=== PATIENT | female | born 1960 | race Caucasian/White ===

== ENCOUNTER → 2017-03-29 | Outpatient (CLI) | payer OTHER ==
[~2017-03-29] MED LIST: ACCUNEB SO1.25 MG/1 INH; ADVAIR 250-501 EACH INH; ALBUTEROL2.5 MG/0.1 INH; ALBUTEROL2.5 MG/0.5 INH; ALBUTEROL2.5 MG/31 IH; ASPIRIN EC81 M1 PO; ASPIRIN325; ATIVAN0.5 M1 PO; ATROVENT INH; BREO ELLIPTA 21 EACH INH; CEFUROXIME500 MG PO; DOXYCYCLINE 10100 M2 PO; DOXYCYCLINE 10100 MG PO; DULERA 100 MCG/13 GM INH; DULERA 200 MCG/13 GM INH; LEVALBUTER1.25 MG/0. INH; LEVALBUTER1.25 MG/3; LEVAQUIN 500 M500 M2 PO; LEVAQUIN 500 M500 M4 PO; LIPITOR 20 MG T20 M1 PO; LISINOPRIL5 MG; LISINOPRIL5 MG PO; MEDROLDOSEPACK PO; MUCINEX TA600 MG/TA2 PO; NICOTINE TRANSD21 M1 TRANSDERM; NITROGLYCERIN0.4 MG; NITROQUICK0.4 MG SL; NOHOMEMEDICATIONS; PREDNISONE 10 M10 MG PO; PREDNISONE 20 M20 M1 PO; PREDNISONE 20 M20 MG PO; PREDNISONE 5 MG5 M1 PO; PREDNISONE 5 MG5 MG PO; PROAIR HFA8.5 GM INH; SPIRIVA INH; TESSALON PERLE100 MG PO; TYLENOL325 MG PO; VENTOLIN HFA 1818 GM INH; VITAMIN E400 UNIT PO; XANAX 0.25 MG0.25 MG PO; XANAX 0.5 MG0.5 M1 PO; XANAX 0.5 MG0.5 MG PO; ZPAK PO
== END ==
LOC: RAD 14:19
DX: R06.00 Dyspnea, unspecified (principal)

== ENCOUNTER 2017-05-05 01:54 | Inpatient (IN) | payer OTHER ==
[~2017-05-05] VITALS: Ht 154.9 cm; Wt 44.9 kg
--- NOTE | ~2017-05-05 | EKG ---
[address] [place] [address] ELECTROCARDIOGRAM REPORT Name: KEVINCULLENSHARMAINE GARNICA Room #: 430-P ADM IN ..#: [id number] Admission: 05/05/17 Attend Phys: Irving Palm MD Discharge: Date of : 60 Report #: [id number] THIS REPORT FOR: //name// [facility] ED Test Date: 2017-05-05 Test Time: 02:09:56 Pat Name: CULLEN BROWN Department: Room: 430 Gender: F Map Mounter: LULI : 1960 Requested By: Prasanna French Order Number: [id number] MD: Bay Cruz Measurements Intervals [place] Rate: 120 P: 89 OK: 148 QRS: 69 QRSD: 82 T: 72 QT: 306 QTc: 433 Interpretive Statements Sinus tachycardia Consider right atrial enlargement Nonspecific ST segment abnormality Abnormal R-wave progression, late transition Artifact in lead(s) I,V1,V4,V5,V6 Compared to ECG 12/14/2014 02:13:25 Ventricular premature complex(es) no longer present Electronically Signed On 05-05-2017 8:54:04 CLINICAL INFORMATICS STRATEGIST by Bay Cruz [email or web address] <ELECTRONICALLY SIGNED> By: Bay Cruz MD, [facility] 05/05/17 0854 8 8 Bay Cruz MD, [facility] /EPI
--- NOTE | ~2017-05-05 | HC ---
[facility] [place] [address] CONSULTATION Name: CULLEN BROWN Room #: 430-P ADM IN M.R.#: [id number] Admission: 05/05/17 Attend Phys: Irving Palm MD Discharge: Date of : 60 Report #: [id number] THIS REPORT FOR: //name// CC: Irving Hardin MD DATE OF SERVICE: 05/05/2017 PULMONARY CONSULTATION REFERRING PROVIDER: Irving Palm MD REASON FOR CONSULTATION: COPD exacerbation. CHIEF COMPLAINT: Shortness of breath. 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 X-ray at that time was clear and bronchodilators for the patient as well as Mucinex and prednisone taper. The patient initially improved, returned to work; however, got ill again and 2 days ago started having increasing shortness of breath and cough, difficulty clearing any sputum with minimal sputum, some chest tightness noted. No fevers. Chest x-ray on this admission was relatively clear other than her hyperinflation consistent with underlying emphysema. Currently, she is resting comfortably in bed and feels somewhat improved with recent treatments. ALLERGIES: None known. PAST MEDICAL HISTORY: 1. Severe COPD. 2. Underlying asthma. 3. Gastroesophageal reflux disease. FAMILY HISTORY: Includes mother at 72, coronary artery disease. Father of pneumonia at 71. Brother with underlying COPD and cardiac disease as well. SOCIAL HISTORY: Ex-smoker, quitting in 2016. Occasional alcohol consumption. [facility] [address] [place] [address] CONSULTATION Name: CULLEN BROWN Room #: [address] [place] [address]#: [id number] Admission: 05/05/17 Attend Phys: Irving Palm MD Discharge: Date of : 60 Report #: [id number] OUTPATIENT MEDICATIONS: 1. Breo 200/25 one inhalation daily. 2. Vitamin D. 3. Spiriva daily. 4. Xopenex p.r.n. REVIEW OF SYSTEMS: Twelve-point review of systems normal except for some ongoing weight loss, but diminished appetite and respiratory symptoms as described. PHYSICAL EXAMINATION: VITAL SIGNS: Afebrile, pulse 100-110, respiratory rate 18, blood pressure 128/85, oxygen saturation 98% on 2 liters nasal cannula. GENERAL: Thin, cachectic, middle-aged woman, in no significant distress. ENT: Clear oropharynx. No thrush. Edentulous. NECK: Supple, no lymphadenopathy. LUNGS: Diminished with some occasional expiratory wheezes. HEART: Regular, but tachycardic. No murmurs. ABDOMEN: Soft, nontender, no masses. EXTREMITIES: No edema. LABORATORY DATA: White blood cell count 15,000, hemoglobin 17, hematocrit 49, platelet count 365. Sodium 143, potassium 4.0, chloride 105, bicarbonate 28, BUN 11, creatinine 0.8, glucose 135. Chest x-ray as described in HPI. No cultures. IMPRESSION: 1. Chronic obstructive pulmonary disease with acute exacerbation. 2. Anxiety disorder. No complaints of recent anxiety. 3. Underlying cachexia, protein malnutrition suggested. SUGGESTIONS: 1. Continue with bronchodilators. 2. Steroid taper. 3. Continue with current antibiotics, Rocephin and azithromycin. 4. Nasal swab for respiratory viral panel. 5. Deep venous thrombosis prophylaxis. 6. Additional recommendations to follow. We will follow along with you. <ELECTRONICALLY SIGNED> By: Max Boggs MD 05/08/17 1535 1857 0257 Max Boggs MD /nt
[~2017-05-05 01:54] MED LIST changes: -BREO ELLIPTA 21 EACH INH; -CEFUROXIME500 MG PO; -LEVALBUTER1.25 MG/0. INH; -LEVALBUTER1.25 MG/3; -LEVAQUIN 500 M500 M4 PO; -PREDNISONE 5 MG5 M1 PO; -XANAX 0.25 MG0.25 MG PO
[2017-05-05 01:55] VITALS: BP 187/113
[2017-05-05 02:23] LABS: HEMATOCRIT 48.9 % (37.0-47.0); HEMOGLOBIN 16.6 gm/dL (12.0-15.0); MCH 33.6 pg (26.0-34.0); MCHC 33.9 g/dL (28.0-37.0); MCV 99.1 fL (80.0-100.0); RBC 4.93 mil/uL (4.20-5.00); RDW 12.5 % (10.5-14.5); WBC 14.8 thou/uL (4.0-11.0)
[2017-05-05 02:27] LABS: CALCIUM 9.2 mg/dL (8.5-10.1); CREATININE 0.8 mg/dL (0.6-1.0)
[2017-05-05] MEDS ORDERED: BREO ELLIPTA 21 EACH INH (02:30)
[2017-05-05] MEDS ORDERED: PREDNISONE 5 MG5 M1 PO (02:32)
[2017-05-05 03:34] VITALS: BP 131/85
[2017-05-05 04:38] VITALS: BP 145/84
[2017-05-05 07:21] VITALS: BP 116/80
[2017-05-05 15:43] VITALS: BP 128/85
[2017-05-05 19:22] VITALS: BP 147/87
[2017-05-06 03:38] VITALS: BP 141/89
[2017-05-06 06:29] LABS: ABSOLUTE NEUTROPHILS 13.9 thou/uL (1.4-8.2); HEMATOCRIT 39.9 % (37.0-47.0); LYMPHOCYTES 3.8 % (24.0-44.0); MCH 33.2 pg (26.0-34.0); MCHC 33.8 g/dL (28.0-37.0); MCV 98.3 fL (80.0-100.0); MONOCYTES 2.4 % (1.0-8.0); POLYS 93.8 % (36.0-66.0); RBC 4.06 mil/uL (4.20-5.00); RDW 12.3 % (10.5-14.5); WBC 14.8 thou/uL (4.0-11.0)
[2017-05-06 06:31] LABS: HEMOGLOBIN 13.5 gm/dL (12.0-15.0); PLATELET COUNT 271 thou/uL (150-400)
[2017-05-06 08:12] VITALS: BP 140/95
[2017-05-06 20:39] VITALS: BP 145/95
[2017-05-07 04:14] VITALS: BP 125/82
[2017-05-07 06:38] LABS: HEMATOCRIT 38.9 % (37.0-47.0); HEMOGLOBIN 13.3 gm/dL (12.0-15.0); MCH 33.5 pg (26.0-34.0); MCHC 34.3 g/dL (28.0-37.0); MCV 97.6 fL (80.0-100.0); RBC 3.98 mil/uL (4.20-5.00); RDW 12.3 % (10.5-14.5); WBC 13.4 thou/uL (4.0-11.0)
[2017-05-07 07:07] LABS: ALBUMIN 2.9 g/dL (3.4-5.0); CALCIUM 8.6 mg/dL (8.5-10.1); CREATININE 0.7 mg/dL (0.6-1.0); POTASSIUM 3.7 mmol/L (3.5-5.1); TOTAL BILIRUBIN 0.3 mg/dL (<0.1-1.0); TOTAL PROTEIN 5.4 g/dL (6.4-8.2)
[2017-05-07 08:00] VITALS: BP 126/77
[2017-05-07 16:06] LABS: GLYCOHEMOGLOBIN (HGB A1C) 5.3 % (4.8-5.6)
[2017-05-07 16:36] VITALS: BP 10/83
[2017-05-07 20:08] VITALS: BP 146/45; BP 146/95
[2017-05-08 04:24] VITALS: BP 127/81
[2017-05-08 05:37] LABS: HEMATOCRIT 39.2 % (37.0-47.0); HEMOGLOBIN 13.7 gm/dL (12.0-15.0); MCH 33.9 pg (26.0-34.0); MCHC 34.9 g/dL (28.0-37.0); MCV 97.3 fL (80.0-100.0); RBC 4.03 mil/uL (4.20-5.00); RDW 12.5 % (10.5-14.5); WBC 10.1 thou/uL (4.0-11.0)
[2017-05-08 05:48] LABS: ALBUMIN 2.9 g/dL (3.4-5.0); CREATININE 0.8 mg/dL (0.6-1.0); PHOSPHORUS 3.8 mg/dL (2.5-4.9); POTASSIUM 3.8 mmol/L (3.5-5.1)
[2017-05-08 09:18] VITALS: BP 142/92
[2017-05-08] MEDS ORDERED: LEVAQUIN 500 M500 M4 PO (13:40)
[2017-05-08] MEDS ORDERED: XANAX 0.25 MG0.25 MG PO (13:40)
[2017-05-08 15:00] VITALS: BP 144/87
[2017-05-08 20:35] VITALS: BP 158/102
[2017-05-09 03:52] VITALS: BP 135/84
[2017-05-09 07:39] VITALS: BP 146/91
[2017-05-09] MEDS ORDERED: LEVAQUIN 500 M500 M2 PO (10:09)
[2017-05-09] MEDS ORDERED: PREDNISONE 10 M10 MG PO (10:09)
[2017-05-09] MEDS ORDERED: SPIRIVA INH (10:09)
[2017-05-09 11:01] VITALS: BP 146/91
[2017-05-10 00:08] LABS: ADENOVIRUS Negative (Negative); INFLUENZA A Negative (Negative); INFLUENZA B Negative (Negative); METAPNEUMOVIRUS Negative (Negative); PARAINFLUENZA 1 Negative (Negative); PARAINFLUENZA 2 Negative (Negative); PARAINFLUENZA 3 Negative (Negative); RHINOVIRUS Negative (Negative); RSV A Negative (Negative); RSV B Negative (Negative)
== END 2017-05-09 11:45 | disposition home or self-care (01) | DRG 871 ==
LOC: ER 01:54 → 4E 03:39
PROVIDERS: Emergency Medicine; Hospitalist; Internal Medicine Pulmonary Disease
DX: A41.9 Sepsis, unspecified organism (principal); J96.20 Acute and chronic respiratory failure, unspecified whether with hypoxia or hypercapnia; E43 Unspecified severe protein-calorie malnutrition; J44.1 Chronic obstructive pulmonary disease with (acute) exacerbation; Z68.1 Body mass index [BMI] 19.9 or less, adult; F41.9 Anxiety disorder, unspecified; I10 Essential (primary) hypertension; K21.9 Gastro-esophageal reflux disease without esophagitis; F17.210 Nicotine dependence, cigarettes, uncomplicated; Z79.51 Long term (current) use of inhaled steroids; Z79.899 Other long term (current) drug therapy; Z71.6 Tobacco abuse counseling; Z82.49 Family history of ischemic heart disease and other diseases of the circulatory system; Z83.6 Family history of other diseases of the respiratory system
CPT/HCPCS: 10183

== ENCOUNTER 2017-05-30 03:01 | Inpatient (IN) | payer OTHER ==
[~2017-05-30] VITALS: Ht 160 cm; Wt 46.5 kg
[2017-05-30] VITALS (9 sets, daily range): BP systolic 109–169; BP diastolic 57–97
--- NOTE | ~2017-05-30 | EKG ---
[place] [address] [facility] [facility] [place] [address] ELECTROCARDIOGRAM REPORT Name: CULLEN BROWN NAHUN Room #: 170-4 ADM IN M.R.#: [id number] Admission: 05/30/17 Attend Phys: Irving Palm MD Discharge: Date of : 60 Report #: [id number] THIS REPORT FOR: //name// [facility] ED Test Date: 2017-05-30 Test Time: 03:40:38 Pat Name: CULLEN BROWN Department: Room: 170 4 Gender: F Gaming Cashier: soraya : 1960 Requested By: Prasanna French Order Number: [id number] MD: Bay Cruz Measurements Intervals [place] Rate: 133 P: 87 UT: 134 QRS: 75 QRSD: 88 T: 71 QT: 315 QTc: 469 Interpretive Statements Sinus tachycardia Ventricular bigeminy Consider right atrial enlargement Abnormal R-wave progression, late transition Artifact in lead(s) I,aVR,aVF,V1,V3,V4,V5,V6 Compared to ECG 05/05/2017 02:09:56 Ventricular premature complex(es) now present Electronically Signed On 05-30-2017 7:55:52 BACK TENDER PAPER MACHINE by Bay Cruz [email or web address] <ELECTRONICALLY SIGNED> By: Bay Cruz MD, FACC 05/30/17 0755 0340 0340 Bay Cruz MD, [facility] /EPI
--- NOTE | ~2017-05-30 | HC ---
[facility] [place] [address] CONSULTATION Name: CULLEN BROWN Room #: 218-P [facility] IN M.R.#: [id number] Admission: 05/30/17 Attend Phys: Irving Palm MD Discharge: 05/31/17 Date of : 60 Report #: [id number] THIS REPORT FOR: //name// CC: Irving Garridoie Wilfred DATE OF SERVICE: 05/30/2017 REFERRAL PHYSICIAN: Dr. Palm. REASON FOR REFERRAL: Dyspnea. HISTORY OF PRESENT ILLNESS: The patient is a 57-year-old white female with severe COPD, presents with progressive dyspnea. A pulmonary consultation was requested. The patient is followed longitudinally by Dr. Boggs. She has known severe COPD. She is not oxygen dependent. She is not steroid dependent. She unfortunately continues to smoke. She has been doing fairly well until this past month where she has had trouble with recurrent dyspnea. She was just hospitalized on 05/05/2017 with exacerbation of COPD. She has been doing fairly well until for the past several days. She has noticed gradual increase in dyspnea. She denies any febrile illness or sore throat. The patient denies any nausea, vomiting, diarrhea, productive cough, chest pain or hemoptysis. Again, she continues to smoke. PAST MEDICAL HISTORY: Notable for COPD, severe impairment with asthma overlap; gastroesophageal reflux disease; tobacco abuse. PAST SURGICAL HISTORY: Unremarkable. ALLERGIES: None to medications. HOME MEDICATIONS: Xanax, Spiriva, recent course of pulsed prednisone therapy, Levaquin, guaifenesin, Breo Ellipta 200 mcg 1 puff once a day. FAMILY HISTORY: Noncontributory. SOCIAL HISTORY: Again, she continues to smoke less than a pack a day. She denies any alcohol abuse. REVIEW OF SYSTEMS: As mentioned above. Otherwise, 10-point system review negative. [facility] [address] [place] [address] CONSULTATION Name: CULLEN BROWN Room #: 218-P [facility]#: [id number] Admission: 05/30/17 Attend Phys: Irving Palm MD Discharge: 05/31/17 Date of : 60 Report #: [id number] PHYSICAL EXAMINATION: GENERAL: She is awake, alert, in no apparent distress. VITAL SIGNS: Temperature is 97.6 degrees Fahrenheit, pulse is 100, respiratory rate is 20, blood pressure 125/93 mmHg, saturation 96%. HEENT: Normocephalic, atraumatic. NECK: Supple, without lymphadenopathy or thyromegaly. CHEST: Breath sounds are decreased bilaterally with mild expiratory wheezes. No rales. CARDIOVASCULAR: Normal S1, S2. There are no murmurs or gallop. There is no JVD. There is no carotid bruit. Pulses 2+/4+ bilaterally. ABDOMEN: Soft, nontender. No organomegaly or masses felt. GENITOURINARY: Deferred. RECTAL: Deferred. EXTREMITIES: There is no edema or cyanosis. Moderate clubbing is also noted in both hands. LABORATORY DATA: Portable chest x-ray shows clear lung manzo. A prior CT chest angiogram shows mild diffuse bilateral bullous disease, predominantly in the upper lobes. EKG shows poor R-wave progression. Otherwise, no acute ischemic changes. Electrolytes are normal. Liver function enzymes are normal. WBC 12,700, hemoglobin is 17.3, platelets are normal. Arterial blood gas revealed pH 7.35, pCO2 of 41, pO2 84 on 2 liters of O2. IMPRESSION: 1. Acute hypoxic respiratory failure in this 57 year white female due to exacerbation of chronic obstructive pulmonary disease. Cannot rule out early lower respiratory tract infections. 2. Tobacco abuse. 3. Polycythemia. She also has component of mild clubbing in both hands. Suspect chronic hypoxia. 4. Malnutrition. The patient has been noted to be cachectic in the past. RECOMMENDATION AND DISCUSSION: According to the patient, she has had clubbing for a number of years. Her weight has been relatively stable for the last several years. Nonetheless, she is known to have severe pulmonary disease. We will continue corticosteroids, bronchodilators and broad spectrum antibiotics. DVT and GI prophylaxis will be recommended. Strongly recommend smoke cessation. Thank you for the consultation. <ELECTRONICALLY SIGNED> By: Ren Burton MD 05/31/17 1742 1444 1986 Ren Burton MD /nt
--- NOTE | ~2017-05-30 | EKG ---
[place] [address] [facility] [place] [address] ELECTROCARDIOGRAM REPORT Name: CULLEN BROWN NAHUN Room #: 170-4 ADM IN .R.#: [id number] Admission: 05/30/17 Attend Phys: Irving Palm MD Discharge: Date of : 60 Report #: [id number] THIS REPORT FOR: //name// [facility] ED Test Date: 2017-05-30 Test Time: 03:20:02 Pat Name: CULLEN BROWN Department: Room: 170 Gender: F Commission Clerk: soraya : 1960 Requested By: Prasanna French Order Number: [id number] MD: Bay Cruz Measurements Intervals [place] Rate: 120 P: 93 MA: 143 QRS: 123 QRSD: 78 T: 77 QT: 307 QTc: 434 Interpretive Statements Sinus tachycardia right atrial enlargement Borderline low voltage, extremity leads Abnormal R-wave progression, late transition Compared to ECG 05/05/2017 02:09:56 No significant change was found Electronically Signed On 05-30-2017 7:55:09 BREAST TRIMMER by Bay rCuz [email or web address] <ELECTRONICALLY SIGNED> By: Bay Cruz MD, [facility] 05/30/17 [facility]5 0320 0320 Bay Cruz MD, [facility] /EPI
[~2017-05-30 03:01] MED LIST changes: +BREO ELLIPTA 21 EACH INH; +LEVAQUIN 500 M500 M4 PO; +PREDNISONE 5 MG5 M1 PO; +XANAX 0.25 MG0.25 MG PO
[2017-05-30 03:13] LABS: ABSOLUTE NEUTROPHILS 7.8 thou/uL (1.4-8.2); BASOPHILS 0.5 % (0.0-2.0); EOSINOPHILS 4.9 % (0.0-3.0); HEMOGLOBIN 17.3 gm/dL (12.0-15.0); LYMPHOCYTES 26.6 % (24.0-44.0); MCH 34.1 pg (26.0-34.0); MCHC 34.6 g/dL (28.0-37.0); MCV 98.6 fL (80.0-100.0); MONOCYTES 6.9 % (1.0-8.0); PLATELET COUNT 337 thou/uL (150-400); POLYS 61.1 % (36.0-66.0); RBC 5.07 mil/uL (4.20-5.00); RDW 13.1 % (10.5-14.5); WBC 12.7 thou/uL (4.0-11.0)
[2017-05-30 03:27] LABS: ANION GAP 9 mmol/L (7-16); BUN 15 mg/dL (7-18); CALCIUM 9.7 mg/dL (8.5-10.1); CHLORIDE 104 mmol/L (98-107); CO2 32 mmol/L (21-32); CREATININE 0.8 mg/dL (0.6-1.0); GLUCOSE 96 mg/dL (74-106); POTASSIUM 4.2 mmol/L (3.5-5.1); SODIUM 145 mmol/L (136-145)
[2017-05-30 03:36] LABS: SGOT 17 U/L (15-37); SGPT 25 U/L (30-65); TOTAL BILIRUBIN 0.4 mg/dL (<0.1-1.0); TOTAL PROTEIN 7.6 g/dL (6.4-8.2); TROPONIN-I < 0.04 ng/mL (<0.06)
[2017-05-30 03:44] LABS: HCO3 22.4 mmol/L (22.0-26.0); PCO2 41.5 mmHg (35.0-45.0); PO2 84.3 mmHg (80.0-100.0); pH 7.351 (7.360-7.450); sO2 95.9 % (92.0-98.0)
[2017-05-30 10:15] LABS: TSH 5.326 uIU/mL (0.358-3.740)
[2017-05-30] MEDS ORDERED: LEVALBUTER1.25 MG/3 (16:14)
[2017-05-31 03:21] LABS: HEMATOCRIT 39.6 % (37.0-47.0); MCH 33.4 pg (26.0-34.0); MCHC 34.3 g/dL (28.0-37.0); MCV 97.5 fL (80.0-100.0); RBC 4.06 mil/uL (4.20-5.00); RDW 13.1 % (10.5-14.5); WBC 12.2 thou/uL (4.0-11.0)
[2017-05-31 03:25] LABS: HEMOGLOBIN 13.6 gm/dL (12.0-15.0)
[2017-05-31 04:07] LABS: CALCIUM 9.1 mg/dL (8.5-10.1); CREATININE 0.9 mg/dL (0.6-1.0); POTASSIUM 4.4 mmol/L (3.5-5.1)
[2017-05-31 04:40] VITALS: BP 128/83
[2017-05-31 07:50] VITALS: BP 118/83
[2017-05-31] MEDS ORDERED: LEVALBUTER1.25 MG/0. INH (11:50)
[2017-05-31] MEDS ORDERED: PREDNISONE 10 M10 MG PO (11:50)
[2017-05-31] MEDS ORDERED: CEFUROXIME500 MG PO (11:53)
[2017-05-31 12:26] VITALS: BP 136/92
[2017-05-31 13:59] VITALS: BP 136/92
== END 2017-05-31 15:20 | disposition home or self-care (01) | DRG 189 ==
LOC: ER 03:01 → 2N 04:03 → EROBS 04:03 → 2N 14:18 → ENTRNSPT 05-31 14:58 → EDTRNSPTSTS 05-31 15:02 → 2N 05-31 15:20
PROVIDERS: Emergency Medicine; Nurse Practitioner; Nurse Practitioner Family
DX: J96.01 Acute respiratory failure with hypoxia (principal); J44.1 Chronic obstructive pulmonary disease with (acute) exacerbation; E46 Unspecified protein-calorie malnutrition; Z68.1 Body mass index [BMI] 19.9 or less, adult; F17.210 Nicotine dependence, cigarettes, uncomplicated; K21.9 Gastro-esophageal reflux disease without esophagitis; D75.1 Secondary polycythemia; F41.9 Anxiety disorder, unspecified; Z83.6 Family history of other diseases of the respiratory system; Z79.899 Other long term (current) drug therapy
CPT/HCPCS: 10081

== ENCOUNTER 2017-06-08 22:34 | Inpatient (IN) | payer OTHER ==
[~2017-06-08] VITALS: Ht 152.4 cm; Wt 44.8 kg
--- NOTE | ~2017-06-08 | EKG ---
[place] [address] [facility] [place] [address] ELECTROCARDIOGRAM REPORT Name: CULLEN BROWN Room #: 352-P ADM IN M.R.#: [id number] Admission: 06/08/17 Attend Phys: Susanna Chandler Discharge: Date of : 60 Report #: [id number] THIS REPORT FOR: //name// [facility] ED Test Date: 2017-06-08 Test Time: 23:43:53 Pat Name: CULLEN BROWN Department: Room: [facility] Gender: F Baseball Pitcher: MZOODarren : 1960 Requested By: Zack Spaulding Order Number: [id number] MD: Bay Cruz Measurements Intervals [place] Rate: 121 P: 89 IA: 138 QRS: 86 QRSD: 93 T: 70 QT: 310 QTc: 440 Interpretive Statements Sinus tachycardia Multiple ventricular premature complexes Consider biatrial enlargement Anteroseptal infarct, age indeterminate Compared to ECG 05/30/2017 03:40:38 No significant change was found Electronically Signed On 06-11-2017 13:30:18 CDT by Bay Cruz [email or web address] <ELECTRONICALLY SIGNED> By: Bay Cruz MD, FAC 06/11/17 1330 2343 2343 Bay Cruz MD, [facility] /EPI
--- NOTE | ~2017-06-08 | HC ---
[facility] [place] [address] CONSULTATION Name: CULLEN BROWN Room #: 352-P [facility] IN M.R.#: [id number] Admission: 06/08/17 Attend Phys: Susanna Chandler Discharge: 06/12/17 Date of : 60 Report #: [id number] THIS REPORT FOR: //name// CC: Susanna Hardni DATE OF SERVICE: 06/09/2017 REFERRING PROVIDER: Susanna Chandler MD REASON FOR CONSULTATION: Shortness of breath. HISTORY OF PRESENT ILLNESS: Our group was asked to see the patient in consultation while hospitalized at [facility], well known to me from office visits and recent hospital stays. She is a 57-year-old woman with a past history of persistent asthma as well as severe COPD, emphysema predominant, who had had a prior history of elevated IgE in eosinophil counts, continues to smoke several cigarettes per day. Unfortunately, presented to the Emergency Department again after just being in the Emergency Department about 8 days ago for similar complaints of increasing shortness of breath. The patient has been on a steroid taper and then as she tapers on prednisone has increasing symptoms. No fevers, chills or sweats. No significant sputum production at this time. Denies much cough, has been using her aerosol treatments about every 4 hours. Also noted inability to adequately inhale Breo inhaler during this time frame, recently quit working due to possible work place exposures, particularly to possible hydrocarbons. In addition, has been noted to be painting inside the home. The patient had been having symptoms prior to that event. Most recent CT 1 month ago showed emphysema, but no other significant findings. ALLERGIES: None known. PAST MEDICAL HISTORY: 1. Severe COPD, emphysema predominant. 2. Asthma. 3. Prior history of elevated eosinophil count and IgE. 4. Gastroesophageal reflux disease. FAMILY HISTORY: Mother at 72 due to coronary artery disease. Father of pneumonia at 71. Brother also with COPD and cardiac disease. SOCIAL HISTORY: The patient continues to smoke several cigarettes daily. Occasional alcohol consumption. OUTPATIENT MEDICATIONS: Include Spiriva, Breo, Xopenex nebulized treatments and [facility] [address] [place] [address] CONSULTATION Name: CULLEN BROWN NAHUN Room #: 352-[facility] IN [facility].#: [id number] Admission: 06/08/17 Attend Phys: Susanna Chandler Discharge: 06/12/17 Date of : 60 Report #: [id number] vitamin D. REVIEW OF SYSTEMS: A 12-point review of systems otherwise negative other than some ongoing weight loss. PHYSICAL EXAMINATION: VITAL SIGNS: Afebrile, pulse 90, respiratory rate 20, blood pressure 128/86, currently saturating 100% on 3 liters nasal cannula, was on BiPAP overnight due to respiratory distress. GENERAL: Thin, middle-aged woman, does not appear in distress. ENT: Clear oropharynx. No thrush. Mallampati 1 airway. NECK: Supple, no lymphadenopathy. LUNGS: Diminished with prolonged expiratory phase, occasional wheeze. CARDIOVASCULAR: Heart regular. No murmurs noted. ABDOMEN: Soft, nontender, no masses. EXTREMITIES: Revealed clubbing, no cyanosis or edema. LABORATORY DATA: Chest x-ray reveals hyperinflation, but otherwise clear lung manzo. Chemistry profile within normal limits except for mildly elevated glucose 135. White blood cell count 13,000, hemoglobin 14, hematocrit 40, platelet count 285, eosinophil count pending. Arterial blood gas on BiPAP 50% revealed pH 7.35, pCO2 of 46, pO2 of 100, bicarbonate 25. IMPRESSION: 1. Obstructive lung disease consistent with chronic obstructive pulmonary disease with significant asthmatic component with difficulty controlling without systemic steroids. The patient continues to have flareups when tapered from steroids. This is very similar occurrence that happened with her about 2 years ago and had required 5 mg daily of prednisone until she tapered off several months ago. At that time, an elevated eosinophil IgE count were noted with no clear cut etiology, may be prudent to revisit. SUGGEST: 1. Steroids with taper. 2. Bronchodilators. 3. Eosinophil count and IgE level. 4. Check echocardiogram to evaluate for pulmonary hypertension. 5. Smoking cessation. 6. Mobilize as able. 7. Consider discontinuation of antibiotics if no purulent sputum. 8. We will continue to follow. [address] [address] CONSULTATION Name: CULLEN BROWN Room #: 352-P [facility] IN M.R.#: [id number] Admission: 06/08/17 Attend Phys: Susanna Chandler Discharge: 06/12/17 Date of : 60 Report #: [id number] Thank you for requesting our suggestions. <ELECTRONICALLY SIGNED> By: Max Boggs MD 06/15/17 1122 0957 1740 Max Boggs MD /nt
--- NOTE | ~2017-06-08 | 2DMMODE ---
[facility] [address] [place] [address] 2 D/M-MODE ECHOCARDIOGRAM Name: CULLEN BROWN Room #: 352-P ADM IN M.R.#: [id number] Admission: 06/08/17 Attend Phys: Susanna Farnsworth Discharge: Date of : 60 Date of Service: 06/09/17 1019 Report #: [id number] THIS REPORT FOR: //name// APPROVED REPORT Study performed: 06/09/2017 08:41:51 EXAM: Comprehensive 2D, Doppler, and color-flow Echocardiogram Patient Location: Echo lab Room #: [facility] Status: routine BSA: 1.38 HR: 96 bpm BP: 128/86 mmHg Rhythm: NSR with PVC's Other Information Study Quality: Fair/low parasternal window. Technically limited study due to COPD and thin body habitus. Not all measurements taken. Indications Short of breath. Hx: COPD, emphysema, continued tobacco use 2D Dimensions RVDd: 36.31 mm LVEF(%): 66.46 (>50%) IVSd: 7.43 (7-11mm) LVOT Diam: 18.86 (18-24mm) LVDd: 39.06 mm PWd: 7.58 (7-11mm) LVDs: 24.94 (25-40mm) Aortic Root: 31.02 mm Olivares's LVEF: 66.46 % Volumes Left Atrial Volume (Systole) Single Plane 4CH: 17.27 mL Aortic Valve AoV Peak Fermin.: 1.26 m/s AO Peak Gr.: 6.36 mmHg LVOT Max P.64 mmHg LVOT Max V: 0.95 m/s MACARIO Vmax: 2.11 cm2 Mitral Valve E/A Ratio: 0.8 [facility] [place] [address] 2 D/M-MODE ECHOCARDIOGRAM Name: KEVINCULLEN NAHUN Room #: [address] [place] [address] IN ..#: [id number] Admission: 06/08/17 Attend Phys: Susanna Farnsworth Discharge: Date of : 60 Date of Service: 06/09/17 1019 Report #: [id number] MV Decel. Time: 269.01 ms MV E Max Fermin.: 0.78 m/s MV A Fermin.: 1.02 m/s MV PHT: 78.01 ms IVRT: 69.20 ms Pulmonary Valve PV Peak Fermin.: 1.02 m/s PV Peak Gr.: 4.19 mmHg Tricuspid Valve TR Peak Fermin.: 2.32 m/s RAP Estimate: 5.00 mmHg TR Peak Gr.: 21.53 mmHg Left Ventricle The left ventricle is normal size. There is normal LV segmental wall motion. There is normal left ventricular wall thickness. Left ventricular systolic function is normal. LVEF is 55-60%. Mild diastolic dysfunction is present (impaired relaxation pattern). Right Ventricle The right ventricle is normal size. The right ventricular systolic function is normal. Atria The left atrium size is normal. The right atrium size is normal. Aortic Valve Aortic valve leaflets are mildly thickened. No aortic regurgitation is present. There is no aortic valvular stenosis. Mitral Valve The mitral valve is normal in structure. Mild mitral regurgitation. Tricuspid Valve The tricuspid valve is normal in structure. Trace tricuspid regurgitation. Estimated PAP is 25-30mmHg. Pulmonic Valve The pulmonary valve is normal in structure. Trace pulmonic regurgitation. Great Vessels The aortic root is normal in size. Ascending aorta is not well [facility] [address] [place] [address] 2 D/M-MODE ECHOCARDIOGRAM Name: CULLEN BROWN NAHUN Room #: 352-P [facility] IN M.R.#: [id number] Admission: 06/08/17 Attend Phys: Susanna Farnsworth Discharge: Date of : 60 Date of Service: 06/09/17 1019 Report #: [id number] visualized. IVC is normal in size and collapses >50% with inspiration. Pericardium There is no pericardial effusion. <Conclusion> The left ventricle is normal size. LVEF is 55-60%. The right ventricle is normal size. The right ventricular systolic function is normal. The right atrium size is normal. Aortic valve leaflets are mildly thickened. There is no aortic valvular stenosis. The mitral valve is normal in structure. Mild mitral regurgitation. The tricuspid valve is normal in structure. Trace tricuspid regurgitation. Estimated PAP is 25-30mmHg. The pulmonary valve is normal in structure. Trace pulmonic regurgitation. There is no pericardial effusion. Ascending aorta is not well visualized. <ELECTRONICALLY SIGNED> By: Jamarcus Taylor MD 06/09/17 1019 1019 1019 Jamarcus Taylor MD /INF
[~2017-06-08 22:34] MED LIST changes: +CEFUROXIME500 MG PO; +LEVALBUTER1.25 MG/0. INH; +LEVALBUTER1.25 MG/3
[2017-06-08 22:35] VITALS: BP 153/96
[2017-06-08 22:51] LABS: HEMOGLOBIN 16.7 gm/dL (12.0-15.0); MCH 33.7 pg (26.0-34.0); MCHC 34.1 g/dL (28.0-37.0); MCV 98.8 fL (80.0-100.0); RBC 4.96 mil/uL (4.20-5.00); RDW 13.4 % (10.5-14.5); WBC 12.2 thou/uL (4.0-11.0)
[2017-06-08 22:58] LABS: ANION GAP 9 mmol/L (7-16); BUN 12 mg/dL (7-18); CALCIUM 9.2 mg/dL (8.5-10.1); CHLORIDE 104 mmol/L (98-107); CO2 30 mmol/L (21-32); CREATININE 0.7 mg/dL (0.6-1.0); GLUCOSE 111 mg/dL (74-106); SODIUM 143 mmol/L (136-145)
[2017-06-08 23:08] LABS: TROPONIN-I < 0.04 ng/mL (<0.06)
[2017-06-08 23:35] LABS: BE(vivo) -1.2 mmol/L (-2 to +3); HCO3 24.9 mmol/L (22.0-26.0); PCO2 46.4 mmHg (35.0-45.0); PO2 100.3 mmHg (80.0-100.0); pH 7.348 (7.360-7.450); sO2 97.3 % (92.0-98.0)
[2017-06-09] VITALS (7 sets, daily range): BP systolic 128–168; BP diastolic 74–106
[2017-06-09 05:37] LABS: HEMATOCRIT 39.6 % (37.0-47.0); MCH 34.2 pg (26.0-34.0); MCHC 34.5 g/dL (28.0-37.0); MCV 99.4 fL (80.0-100.0); RBC 3.98 mil/uL (4.20-5.00); RDW 13.1 % (10.5-14.5); WBC 12.9 thou/uL (4.0-11.0)
[2017-06-09 05:45] LABS: CALCIUM 8.5 mg/dL (8.5-10.1); CREATININE 0.8 mg/dL (0.6-1.0); POTASSIUM 4.6 mmol/L (3.5-5.1)
[2017-06-09 05:55] LABS: HEMOGLOBIN 13.6 gm/dL (12.0-15.0)
[2017-06-10 03:16] VITALS: BP 131/79
[2017-06-10 07:17] VITALS: BP 130/88
[2017-06-10 12:28] VITALS: BP 131/87
[2017-06-10 16:41] VITALS: BP 123/81
[2017-06-10 19:38] VITALS: BP 136/72
[2017-06-11 03:53] VITALS: BP 135/82
[2017-06-11 07:36] VITALS: BP 138/82
[2017-06-11 12:14] VITALS: BP 133/82
[2017-06-11 15:14] VITALS: BP 139/79
[2017-06-11 19:40] VITALS: BP 135/86
[2017-06-12 03:20] VITALS: BP 117/90
[2017-06-12 07:24] VITALS: BP 121/86
[2017-06-12] MEDS ORDERED: PREDNISONE 10 M10 MG PO (09:36)
[2017-06-12] MEDS ORDERED: LEVAQUIN 500 M500 M2 PO (09:36)
[2017-06-12 12:14] VITALS: BP 115/85
[2017-06-12 13:18] VITALS: BP 115/85
[2017-06-13 00:10] LABS: ADENOVIRUS Negative (Negative); INFLUENZA A Negative (Negative); INFLUENZA B Negative (Negative); METAPNEUMOVIRUS Negative (Negative); PARAINFLUENZA 1 Negative (Negative); PARAINFLUENZA 2 Negative (Negative); PARAINFLUENZA 3 Negative (Negative); RHINOVIRUS Negative (Negative); RSV A Negative (Negative); RSV B Negative (Negative)
== END 2017-06-12 14:44 | disposition home or self-care (01) | DRG 871 ==
LOC: ER 22:34 → 3W 23:45 → EROBS 23:45 → 3W 06-09 00:58
PROVIDERS: Emergency Medicine; Internal Medicine Pulmonary Disease; Nurse Practitioner Family
PROC: 5A09357 Assistance with Respiratory Ventilation, Less than 24 Consecutive Hours, Continuous Positive Airway Pressure (ICD-10-PCS; principal; 2017-06-08)
PROC: B24BZZ4 Ultrasonography of Heart with Aorta, Transesophageal (ICD-10-PCS; 2017-06-09)
DX: A41.9 Sepsis, unspecified organism (principal); J96.21 Acute and chronic respiratory failure with hypoxia; E43 Unspecified severe protein-calorie malnutrition; J44.1 Chronic obstructive pulmonary disease with (acute) exacerbation; Z68.1 Body mass index [BMI] 19.9 or less, adult; J45.901 Unspecified asthma with (acute) exacerbation; F41.9 Anxiety disorder, unspecified; I08.3 Combined rheumatic disorders of mitral, aortic and tricuspid valves; K21.9 Gastro-esophageal reflux disease without esophagitis; F17.210 Nicotine dependence, cigarettes, uncomplicated; Z79.899 Other long term (current) drug therapy; Z71.6 Tobacco abuse counseling; Z82.49 Family history of ischemic heart disease and other diseases of the circulatory system; Z82.5 Family history of asthma and other chronic lower respiratory diseases
CPT/HCPCS: 10879

== ENCOUNTER 2017-06-27 09:08 | Emergency (ER) | payer OTHER ==
[~2017-06-27] VITALS: Ht 160 cm; Wt 52.2 kg
--- NOTE | ~2017-06-27 | EKG ---
[place] [address] [place] [address] ELECTROCARDIOGRAM REPORT Name: CULLEN BROWN NAHUN Room #: [facility]#: [id number] Admission: 06/27/17 Attend Phys: Discharge: Date of : 60 Report #: [id number] THIS REPORT FOR: //name// [facility] ED Test Date: 2017-06-27 Test Time: 10:06:58 Pat Name: CULLEN BROWN Department: Room: Gender: F Manager Benefit: BASILIA : 1960 Requested By: Michael Larsen Order Number: [id number] MD: Bay Curz Measurements Intervals [place] Rate: 109 P: 90 ID: 134 QRS: 93 QRSD: 83 T: 71 QT: 332 QTc: 448 Interpretive Statements Sinus tachycardia Frequent premature ventricular complexes Right atrial abnormality Poor R wave progression Compared to ECG 06/08/2017 23:43:53 No significant change was found Electronically Signed On 06-27-2017 12:29:57 CDT by Bay Cruz [email or web address] <ELECTRONICALLY SIGNED> By: Bay Cruz MD, [facility] 06/27/17 1229 05 Bay Cruz MD, FAC /EPI
[2017-06-27] MEDS ORDERED: XANAX 0.5 MG0.5 M1 PO (14:25)
[2017-06-27] MEDS ORDERED: PREDNISONE 20 M20 MG PO (14:25)
== END 2017-06-27 14:34 | disposition home or self-care (01) ==
LOC: ER 09:08
DX: J44.1 Chronic obstructive pulmonary disease with (acute) exacerbation (principal); R00.8 Other abnormalities of heart beat; F11.20 Opioid dependence, uncomplicated; F41.9 Anxiety disorder, unspecified

== ENCOUNTER 2018-07-14 06:01 | Inpatient (IN) | payer OTHER ==
[~2018-07-14] VITALS: Ht 152.4 cm; Wt 43.1 kg
[2018-07-14] VITALS (11 sets, daily range): BP systolic 121–165; BP diastolic 81–115
--- NOTE | ~2018-07-14 | H ---
[facility] [place] [address] HISTORY AND PHYSICAL Name: CULLEN BROWN Room #: 238-P ADM IN M.R.#: [id number] Admission: 07/14/18 ������������������ Attend Phys: Carmel Hernandez MD Discharge: ������������������ Date of : 60 Report #: [id number] THIS REPORT FOR: //name// CC: Carmel Garridoie Wilfred REASON FOR PRESENTATION: Shortness of breath. HISTORY OF PRESENT ILLNESS: A very well-known patient to us from previous admissions. She is a 58-year-old with past medical history of COPD, who presented with increasing shortness of breath after she had been working in her yard. This has gotten progressively worse over the last 24 hours and was associated with cough. No fever or chills. She has COPD with severe emphysematous and hyperexpanded lungs on the previous x-rays. She had been evaluated by her senior wind turbine technician, Dr. Boggs, in the past. She lost to followup after he left the practice. She is also known to have history of persistent asthma with elevated IgE. She was last seen by him back in 05/2017. She required 8 liters of oxygen when she got transferred to the Emergency Room. No productive sputum. No hemoptysis. PAST MEDICAL HISTORY: 1. COPD. 2. Asthma. 3. Elevated IgE. 4. Gastroesophageal reflux. FAMILY HISTORY: Mom had coronary artery disease. Father of pneumonia. SOCIAL HISTORY: No drug or alcohol abuse. She lives with her . She continues to smoke. MEDICATIONS: 1. Alprazolam. 2. Prednisone. 3. Spiriva. 4. Levalbuterol. 5. Breo. REVIEW OF SYSTEMS: GENERAL: No fever or chills. CARDIOVASCULAR: No chest pain or palpitations. PULMONARY: As per the history of present illness. GASTROINTESTINAL: No nausea or vomiting. GENITOURINARY: No frequency or urgency. MUSCULOSKELETAL: No back pain. No morning stiffness. NEUROLOGIC: No headache, no dizziness. [facility] [address] [place] [address] HISTORY AND PHYSICAL Name: CULLEN BROWN NAHUN Room #: [address] [place] [address] IN ..#: [id number] Admission: 07/14/18 ������������������ Attend Phys: Carmel Hernandez MD Discharge: ������������������ Date of : 60 Report #: [id number] PHYSICAL EXAMINATION: VITAL SIGNS: Pulse is 110. She is afebrile. Respiratory rate was 22 on arrival. Blood pressure is 145/98. HEAD AND NECK: She is using her neck accessory muscles. CHEST: Very limited air entry with bilateral wheezes. CARDIOVASCULAR: No rub. ABDOMEN: Soft, nontender. LOWER EXTREMITIES: No edema. LABORATORY DATA: Laboratory values reviewed. White blood cell count is 12.8. Blood gas with a pH of 7.3. Chemistry is within normal limits. Chest x-ray with no acute abnormality. ASSESSMENT, IMPRESSION AND PLAN: 1. Chronic obstructive pulmonary disease exacerbation. 2. Leukocytosis. 3. Asthma. 4. Remote history of eosinophilia and elevated IgE. 5. Admission. 6. IV steroids. 7. Cultures. 8. Appropriate antibiotics initiation. 9. CPAP utilization. 10. Inhalers. 11. Deep venous thrombosis and gastrointestinal prophylaxis. ��������������������������������������������� ���������������������������������������� By: ��������������������������������������������� 0839 0923 Carmel Hernandez MD /nt
[2018-07-14 06:16] LABS: ABSOLUTE NEUTROPHILS 5.6 thou/uL (1.4-8.2); BASOPHILS 0.8 % (0.0-2.0); EOSINOPHILS 6.8 % (0.0-3.0); HEMATOCRIT 50.4 % (37.0-47.0); LYMPHOCYTES 40.4 % (24.0-44.0); MCH 33.1 pg (26.0-34.0); MCHC 33.8 g/dL (28.0-37.0); MONOCYTES 8.2 % (1.0-8.0); PLATELET COUNT 307 thou/uL (150-400); POLYS 43.8 % (36.0-66.0); RBC 5.14 mil/uL (4.20-5.00); RDW 12.7 % (10.5-14.5); WBC 12.8 thou/uL (4.0-11.0)
[2018-07-14 06:21] LABS: PCO2 49.4 mmHg (35.0-45.0); PO2 295.8 mmHg (80.0-100.0); sO2 99.6 % (92.0-98.0)
[2018-07-14 06:22] LABS: pH 7.304 (7.360-7.450)
[2018-07-14 06:30] LABS: ANION GAP 13 mmol/L (7-16); BUN 18 mg/dL (7-18); CHLORIDE 103 mmol/L (98-107); CO2 29 mmol/L (21-32); CREATININE 0.9 mg/dL (0.6-1.0); GLUCOSE 106 mg/dL (74-106); SODIUM 145 mmol/L (136-145)
[2018-07-14 06:38] LABS: TROPONIN-I <0.06 ng/mL (<0.06)
--- NOTE | 2018-07-14 09:08 | EKG ---
[address] [place] [address] ELECTROCARDIOGRAM REPORT Name: CULLEN BROWN Room #: 238- ADM IN M.R.#: [id number] ������������������ Admission: 07/14/18 ������������������ Attend Phys: Carmel Hernandez MD Discharge: ������������������ Date of : 60 Report #: [id number] ����������������������������������������������������������������� [id number] THIS REPORT FOR: //name// [facility] ED Test Date: 2018-07-14 Test Time: 07:45:02 Pat Name: CULLEN BROWN Department: Room: 238 Gender: F Aws Developer: raghav : 1960 Requested By: Mynor Verdugo Order Number: [id number] MD: Immanuel Healy Measurements Intervals [place] Rate: 106 P: 91 CO: 139 QRS: 84 QRSD: 92 T: 60 QT: 336 QTc: 447 Interpretive Statements Sinus tachycardia Frequent PVCs Right atrial enlargement Low voltage, extremity leads Abnormal R-wave progression, late transition Compared to ECG 06/27/2017 10:06:58 Low QRS voltage now present Poor R-wave progression no longer present Electronically Signed On 07-14-2018 9:08:31 CDT by Immanuel Healy [email or web address] ��������������������������������������������� <ELECTRONICALLY SIGNED> ���������������������������������������� By: Immanuel Healy MD ��������������������������������������������� 07/14/18 0908 0745 Immanuel Healy MD /EPI
--- NOTE | 2018-07-14 10:24 | NUR ---
PATIENT ADMITTED FROM THE ED DEPARTMENT AT 0900, ALERT AND ORIENTED X4. SINUS RHYTHM TO SINUS TACHYCARDIA ON WET CHAR CONVEYOR TENDER. ON 3L NASAL CANNULA, SHORTNESS OF BREATH WITH EXERTION. UP INDEPENDENTLY. NO SKIN ISSUES. PATIENT BEING TRANSFERRED TO [facility], REPORT CALLED TO ONCOMING NURSE. NO SIGNS OF ACUTE DISTRESS NOTED AT THIS TIME, PATIENT TRANSFERRED.
--- NOTE | 2018-07-14 16:42 | NUR ---
PATIENT ADMITTED TO UNIT AT ABOUT 12PM. SHE IS ALERT ORIENTED X4. DENIES PAIN. RESPIRAIONNS ARE NON LABORED WHEN SHE IS RESTING. NO NEW COMPLAINTS. WILL CONT WITH PLAN OF CARE.
[2018-07-15 00:10] VITALS: BP 136/92
[2018-07-15 03:45] VITALS: BP 126/77
[2018-07-15 04:04] LABS: HEMOGLOBIN 15.1 gm/dL (12.0-15.0); MCH 33.3 pg (26.0-34.0); MCHC 34.4 g/dL (28.0-37.0); MCV 97.1 fL (80.0-100.0); RBC 4.53 mil/uL (4.20-5.00); RDW 12.6 % (10.5-14.5); WBC 9.1 thou/uL (4.0-11.0)
[2018-07-15 04:21] LABS: CALCIUM 9.5 mg/dL (8.5-10.1); CREATININE 0.7 mg/dL (0.6-1.0); TOTAL BILIRUBIN 0.4 mg/dL (<0.1-1.0); TOTAL PROTEIN 6.8 g/dL (6.4-8.2)
--- NOTE | 2018-07-15 05:23 | NUR ---
SLEPT MOST OF SHIFT. DENIES COMPLAINTS OF PAIN OR SHORTNESS OF AIR. UP AD ABBY TO BATHROOM WITH STEADY GAIT. HAS NOT HAD TO USE PRN O2 TONIGHT. WORKING ON GOALS AND PLAN OF CARE FOR NOC. PROGRESSING SLOWLY TOWARDS DISCHARGE GOALS. CONTINUE TO ASSES.
[2018-07-15 07:11] VITALS: BP 145/80
[2018-07-15 10:08] VITALS: BP 145/80
--- NOTE | 2018-07-15 10:30 | EKG ---
[place] [address] [employer] [facility] [place] [address] ELECTROCARDIOGRAM REPORT Name: CULLEN BROWN Room #: 358-P ADM IN M.R.#: [id number] ������������������ Admission: 07/14/18 ������������������ Attend Phys: Carmel Hernandez MD Discharge: ������������������ Date of : 60 Report #: [id number] ����������������������������������������������������������������� [id number] THIS REPORT FOR: //name// [facility] ED Test Date: 2018-07-14 Test Time: 06:08:16 Pat Name: CULLEN BROWN Department: Room: [facility] Gender: F Die Holder: ignacio : 1960 Requested By: Mynor Verdugo Order Number: [id number] MD: Immanuel Healy Measurements Intervals [place] Rate: 123 P: 85 AL: 137 QRS: 242 QRSD: 105 T: 64 QT: 321 QTc: 460 Interpretive Statements Sinus tachycardia Frequent PVCs right atrial enlargement Low voltage, extremity leads Consider left ventricular hypertrophy Poor R-wave progression Compared to ECG 06/27/2017 10:06:58 Left ventricular hypertrophy now present Electronically Signed On 07-15-2018 10:29:47 CDT by Immanuel Healy [email or web address] ��������������������������������������������� <ELECTRONICALLY SIGNED> ���������������������������������������� By: Immanuel Healy MD ��������������������������������������������� 07/15/18 1029 0608 0608 Immanuel Healy MD /EPI
--- NOTE | 2018-07-15 11:14 | NUR ---
PATIENT WILL BE DISCHARGE HOME AT THIS TIME. SHE IS PLEASANT. [facility] CARE. DOES NOT SEEM TO BE IN PAIN. RESPIRATIONS ARE NON LABORED. PRECRIPTIONS GIVEN TO HER. WILL CONT WITH PLAN OF CARE.
== END 2018-07-15 11:29 | disposition home or self-care (01) | DRG 191 ==
LOC: ER 06:01 → EROBS 07:15 → ICU 08:54 → 3W 08:55
PROVIDERS: Emergency Medicine; ADMIT Hospitalist
DX: J44.1 Chronic obstructive pulmonary disease with (acute) exacerbation (principal); E87.2 Acidosis; J96.10 Chronic respiratory failure, unspecified whether with hypoxia or hypercapnia; F41.9 Anxiety disorder, unspecified; D72.1 Eosinophilia; K21.9 Gastro-esophageal reflux disease without esophagitis; F17.210 Nicotine dependence, cigarettes, uncomplicated; Z79.899 Other long term (current) drug therapy; Z82.49 Family history of ischemic heart disease and other diseases of the circulatory system; Z83.6 Family history of other diseases of the respiratory system
CPT/HCPCS: 10879

== ENCOUNTER 2018-09-20 08:46 | Inpatient (IN) | payer OTHER ==
[2018-09-20] VITALS (7 sets, daily range): BP systolic 119–146; BP diastolic 65–100
[~2018-09-20] VITALS: Ht 154.9 cm; Wt 45.4 kg
[2018-09-20 09:08] LABS: ABSOLUTE NEUTROPHILS 5.5 thou/uL (1.4-8.2); BASOPHILS 0.7 % (0.0-2.0); EOSINOPHILS 3.4 % (0.0-3.0); HEMATOCRIT 43.8 % (37.0-47.0); HEMOGLOBIN 14.9 gm/dL (12.0-15.0); LYMPHOCYTES 25.6 % (24.0-44.0); MCH 34.1 pg (26.0-34.0); MCV 100.2 fL (80.0-100.0); MONOCYTES 6.7 % (1.0-8.0); PLATELET COUNT 294 thou/uL (150-400); POLYS 63.6 % (36.0-66.0); RBC 4.37 mil/uL (4.20-5.00); RDW 13.2 % (10.5-14.5); WBC 8.7 thou/uL (4.0-11.0)
[2018-09-20 09:11] LABS: CALCIUM 8.9 mg/dL (8.5-10.1); CREATININE 0.8 mg/dL (0.6-1.0); POTASSIUM 4.2 mmol/L (3.5-5.1)
[2018-09-20 09:22] LABS: ALBUMIN 3.7 g/dL (3.4-5.0); TOTAL BILIRUBIN 0.6 mg/dL (<0.1-1.0); TOTAL PROTEIN 6.7 g/dL (6.4-8.2); TROPONIN-I 0.11 ng/mL (<0.06)
[2018-09-20 09:25] LABS: BE(vivo) -5.8 mmol/L (-2 to +3); HCO3 19.5 mmol/L (22.0-26.0); PCO2 37.9 mmHg (35.0-45.0); PO2 196.2 mmHg (80.0-100.0); sO2 99.3 % (92.0-98.0)
[2018-09-20 09:26] LABS: pH 7.329 (7.360-7.450)
--- NOTE | 2018-09-20 15:44 | NUR ---
PATIENT ARRIVED FROM ED VIA STRECHER, ALERT AND ORIENTED X4. SOB ON O2 2L NC. BREATHING TX Q4 GIVEN PER RT, PATIENT REPORTED SOME RELIEVE. ST ON THE MONITOR ,VSS AND AFEBRILE. ADMISSION COMPLETED, AND WILL CONTINUE WITH POC.
--- NOTE | 2018-09-21 02:55 | NUR ---
ASSUMED PT CARE AT 1900. PT A/OX4, VITAL SIGNS STABLE, ASSESSMENT CHARTED.NO COMPLAINTS OF PAIN. OCCASIONAL SOB, 02 AT BED SIDE. PT OCCASIONALLY TAKES OFF O2. HEAD OF BED ELEVATED. PT RESTED WELL THROUGH THE NIGHT. PROGRESSING TOWARD PLAN OF CARE. WILL CONTINUE TO MONITOR.
[2018-09-21 04:36] VITALS: BP 106/66
[2018-09-21 05:20] LABS: ABSOLUTE NEUTROPHILS 8.6 thou/uL (1.4-8.2); BASOPHILS 0.1 % (0.0-2.0); HEMATOCRIT 38.4 % (37.0-47.0); HEMOGLOBIN 13.3 gm/dL (12.0-15.0); LYMPHOCYTES 5.5 % (24.0-44.0); MCH 34.2 pg (26.0-34.0); MCHC 34.5 g/dL (28.0-37.0); MCV 99.1 fL (80.0-100.0); MONOCYTES 3.1 % (1.0-8.0); PLATELET COUNT 240 thou/uL (150-400); POLYS 91.3 % (36.0-66.0); RBC 3.88 mil/uL (4.20-5.00); RDW 13.4 % (10.5-14.5); WBC 9.4 thou/uL (4.0-11.0)
[2018-09-21 05:39] LABS: CALCIUM 8.8 mg/dL (8.5-10.1); CREATININE 0.7 mg/dL (0.6-1.0); MAGNESIUM 1.7 mg/dL (1.8-2.4); POTASSIUM 3.7 mmol/L (3.5-5.1)
--- NOTE | 2018-09-21 07:44 | EKG ---
[place] [address] [address] [facility] [place] [address] ELECTROCARDIOGRAM REPORT Name: KEVINCULLENSHARMAINE GARNICA Room #: 205-P ADM IN .R.#: [id number] ������������������ Admission: 09/20/18 ������������������ Attend Phys: Samuel Laguna MD Discharge: ������������������ Date of : 60 Report #: [id number] ����������������������������������������������������������������� [id number] THIS REPORT FOR: //name// [facility] ED Test Date: 2018-09-20 Test Time: 08:58:48 Pat Name: CULLEN BROWN Department: Room: [facility] Gender: F Heel Cutter: BLANCO : 1960 Requested By: Narayan Feng Order Number: [id number] MD: Bay Cruz Measurements Intervals [place] Rate: 115 P: 94 MO: 159 QRS: 98 QRSD: 90 T: 66 QT: 329 QTc: 455 Interpretive Statements Sinus tachycardia Multiform ventricular premature complexes Biatrial enlargement Poor R wave progression nonspecific ST and T wave abnormality Compared to ECG 07/14/2018 07:45:02 no significant change was found Electronically Signed On 09-21-2018 7:44:06 CDT by Bay Cruz [email or web address] ��������������������������������������������� <ELECTRONICALLY SIGNED> ���������������������������������������� By: Bay Cruz MD, FACC ��������������������������������������������� 09/21/18 0744 0858 0858 Bay Cruz MD, [facility] /EPI
[2018-09-21 08:24] VITALS: BP 119/66
[2018-09-21 10:10] LABS: GLYCOHEMOGLOBIN (HGB A1C) 5.2 % (4.8-5.6)
[2018-09-21] MEDS ORDERED: DOXYCYCLINE 10100 MG PO (11:50)
[2018-09-21] MEDS ORDERED: PREDNISONE 20 M20 MG PO (11:50)
[2018-09-21] MEDS ORDERED: ACETAMINOPHEN325 M1 PO (11:50)
[2018-09-21 12:14] VITALS: BP 119/66
--- NOTE | 2018-09-21 12:16 | NUR ---
Pt dcing home today. Case discussed with the care team. No cm interventions indicated. Pt has home o2 in place for prn use. She is indep with gait and adl's. Her AD/DPOA document is on the chart. Insurance being verified. Pt's pcp is Dr. Varsha Hardin.
[2018-09-21 12:22] VITALS: BP 119/66
--- NOTE | 2018-09-21 12:51 | NUR ---
PT CARE ASSUMED APPROX 0700. PT ALERT AND ORIENTED X4. VSS. DENIES PAIN AND SOA. PT TO DISCHARGE AT THIS TIME. POST HOSPITAL CARE EDUCATION PROVIDED BY DR PATIÑO. PT DENIES QUESTIONS OR CONCERNS REGARDING MEDS, F/U APPTS, ACTIVITY LEVEL, DIET, OR POST HOSPITAL CARE. IV OUT, TELE BOX OFF. PT'S TO TRANSPORT HOME. PT WILL BE ESCORTED OUT BY HOSPITAL STAFF TIMELY.
== END 2018-09-21 13:43 | disposition home or self-care (01) | DRG 189 ==
LOC: ER 08:46 → 2N 09:45 → EROBS 09:45 → 2N 11:02 → ENTRNSPT 09-21 13:34 → 2N 09-21 13:43
PROVIDERS: Emergency Medicine; Nurse Practitioner; ADMIT Internal Medicine
DX: J96.21 Acute and chronic respiratory failure with hypoxia (principal); J43.9 Emphysema, unspecified; Z66 Do not resuscitate; R73.9 Hyperglycemia, unspecified; F41.1 Generalized anxiety disorder; R74.8 Abnormal levels of other serum enzymes; J96.22 Acute and chronic respiratory failure with hypercapnia; R76.8 Other specified abnormal immunological findings in serum; F17.210 Nicotine dependence, cigarettes, uncomplicated; Z79.51 Long term (current) use of inhaled steroids; Z79.899 Other long term (current) drug therapy; Z71.6 Tobacco abuse counseling
CPT/HCPCS: 10081

== ENCOUNTER 2018-10-01 02:04 | Inpatient (IN) | payer OTHER ==
[~2018-10-01] VITALS: Ht 152.4 cm; Wt 46.0 kg
[2018-10-01] VITALS (27 sets, daily range): BP systolic 114–215; BP diastolic 66–125
[~2018-10-01 02:04] MED LIST changes: +ACETAMINOPHEN325 M1 PO
[2018-10-01 02:23] LABS: ABSOLUTE NEUTROPHILS 10.4 thou/uL (1.4-8.2); BASOPHILS 0.7 % (0.0-2.0); EOSINOPHILS 4.8 % (0.0-3.0); HEMATOCRIT 46.6 % (37.0-47.0); HEMOGLOBIN 15.9 gm/dL (12.0-15.0); LYMPHOCYTES 29.9 % (24.0-44.0); MCH 34.3 pg (26.0-34.0); MCHC 34.1 g/dL (28.0-37.0); MCV 100.6 fL (80.0-100.0); MONOCYTES 7.8 % (1.0-8.0); PLATELET COUNT 389 thou/uL (150-400); POLYS 56.8 % (36.0-66.0); RBC 4.63 mil/uL (4.20-5.00); RDW 12.7 % (10.5-14.5); WBC 18.4 thou/uL (4.0-11.0)
[2018-10-01 02:31] LABS: ANION GAP 7 mmol/L (7-16); BUN 18 mg/dL (7-18); CALCIUM 8.4 mg/dL (8.5-10.1); CHLORIDE 105 mmol/L (98-107); CO2 32 mmol/L (21-32); CREATININE 0.7 mg/dL (0.6-1.0); GLUCOSE 154 mg/dL (74-106); POTASSIUM 4.5 mmol/L (3.5-5.1); SODIUM 144 mmol/L (136-145)
[2018-10-01 02:36] LABS: BE(vivo) -0.8 mmol/L (-2 to +3); HCO3 31.3 mmol/L (22.0-26.0); PO2 322.9 mmHg (80.0-100.0); sO2 99.6 % (92.0-98.0)
[2018-10-01 02:38] LABS: PCO2 89.3 mmHg (35.0-45.0); pH 7.162 (7.360-7.450)
[2018-10-01 02:41] LABS: ALBUMIN 3.8 g/dL (3.4-5.0); SGOT 55 U/L (15-37); SGPT 76 U/L (30-65); TOTAL BILIRUBIN 0.4 mg/dL (<0.1-1.0); TOTAL PROTEIN 6.9 g/dL (6.4-8.2); TROPONIN-I <0.06 ng/mL (<0.06)
[2018-10-01 04:34] LABS: BE(vivo) -3.1 mmol/L (-2 to +3); HCO3 27.6 mmol/L (22.0-26.0); PO2 111.9 mmHg (80.0-100.0); sO2 96.7 % (92.0-98.0)
--- NOTE | 2018-10-01 05:20 | NUR ---
PT ARRIVED TO UNIT @ 0325 FROM ED ON BIPAP. SPOUSE AT BEDSIDE. DR. FERRO CONSULTED AND AWARE OF PT CONDITION/ABG RESULTS. TACHY IN THE 120-130S ON THE CAFETERIA MONITOR. CONTINUE TO MONITOR
[2018-10-01 05:29] LABS: BE(vivo) -2.5 mmol/L (-2 to +3); HCO3 26.9 mmol/L (22.0-26.0); sO2 96.4 % (92.0-98.0)
[2018-10-01 05:31] LABS: PCO2 67.2 mmHg (35.0-45.0); pH 7.221 (7.360-7.450)
[2018-10-01 05:48] LABS: PCO2 76.7 mmHg (35.0-45.0); pH 7.174 (7.360-7.450)
--- NOTE | 2018-10-01 08:17 | EKG ---
[place] [address] [facility] [place] [address] ELECTROCARDIOGRAM REPORT Name: KEVINCULLEN NAHUN Room #: 247-[facility] IN ..#: [id number] ������������������ Admission: 10/01/18 ������������������ Attend Phys: Irving Palm MD Discharge: ������������������ Date of : 60 Report #: [id number] ����������������������������������������������������������������� [id number] THIS REPORT FOR: //name// [facility] ED Test Date: 2018-10-01 Test Time: 02:16:33 Pat Name: CULLEN BROWN Department: Room: [facility] Gender: F Ncr Operator: vernell workman : 1960 Requested By: Narayan Feng Order Number: [id number] MD: Bay Cruz Measurements Intervals [place] Rate: 120 P: 88 [place]: 152 QRS: 94 QRSD: 106 T: 86 QT: 315 QTc: 445 Interpretive Statements Sinus tachycardia Ventricular bigeminy Right atrial abnormality Compared to ECG 09/20/2018 08:58:48 ST (T wave) deviation no longer present Electronically Signed On 10-01-2018 8:17:09 CDT by Bay Cruz [email or web address] ��������������������������������������������� <ELECTRONICALLY SIGNED> ���������������������������������������� By: Bay Cruz MD, [facility] ��������������������������������������������� 10/01/18 0817 5 Bay Cruz MD, [facility] /EPI
[2018-10-01 11:21] LABS: BE(vivo) -1.2 mmol/L (-2 to +3); HCO3 24.6 mmol/L (22.0-26.0); PCO2 45.3 mmHg (35.0-45.0); PO2 141.9 mmHg (80.0-100.0); pH 7.353 (7.360-7.450); sO2 98.7 % (92.0-98.0)
--- NOTE | 2018-10-01 16:45 | NUR ---
shift summary;Pt was alert, oriented x 4. Pt was on Bipap but was off around 1130. NC on.ABG gas was reordered @noon and showed improvement. Pt's breathing was non-labored. HR was between SR, S. Tachy and Bigeminy. Pt didn't have appetite except sherbert. Pt was up w/ standby assist for using toilet. Pt requested to be off from NC. O2sat was 91 to 94%
[2018-10-02] VITALS (21 sets, daily range): BP systolic 101–156; BP diastolic 50–92
[2018-10-02 05:11] LABS: HEMATOCRIT 38.6 % (37.0-47.0); MCH 34.2 pg (26.0-34.0); MCHC 34.2 g/dL (28.0-37.0); MCV 100.2 fL (80.0-100.0); RBC 3.85 mil/uL (4.20-5.00); RDW 12.6 % (10.5-14.5); WBC 13.4 thou/uL (4.0-11.0)
[2018-10-02 05:14] LABS: HEMOGLOBIN 13.2 gm/dL (12.0-15.0)
[2018-10-02 05:22] LABS: CALCIUM 8.5 mg/dL (8.5-10.1); CREATININE 0.7 mg/dL (0.6-1.0)
--- NOTE | 2018-10-02 06:08 | NUR ---
ASSUMED CARE OF PT. AT 1900. PT. IS ALERT AND OREINTED X4. DENIES PAIN. NC ON AT NIGHT WHILE ASLEEP FOR LOW OR, NO BIPAP NEEDED. PT. SHOWS PVCS AND OCCASIONAL BIGEMINY ON MONITOR, SAME DURING THE DAY. PT. IS UP WITH STAND BY ASSIST TO TOILET, ADEQUATE URINARY OUTPUT. PLAN OF CARE IS TO CONTINUE TO MONITOR OXYGENATION, POSSIBLE TRANSFER TODAY? ASSESSMENTS AND VITAL SIGNS CHARTED. WILL CONTINUE TO MONITOR.
--- NOTE | 2018-10-02 10:54 | NUR ---
INITIAL ASSESSMENT: SW reviewed chart and spoke with nursing. Pt was admitted from home due to exacerbation of COPD. Pt is on IV steroids at this time. Pt may transfer out of ICU later today. SW met with pt and spouse at bedside. Introduced role of SW. Pt is alert/orientated x 4. Pt sitting up in chair during time of visit. Pt reports she lives at home with her spouse in a one-level home. No steps to enter or inside the home. Prior to admission, pt was independent with ADLS. No use of DME for ambulation. Pt has a nebulizer and home O2 through [employer]. Pt states she uses O2 PRN. Pt's PCP is Dr. Varsha Hardin. No hx of HH services or SNF/rehab placement. Pt denies having any discharge needs. SW is following to assist as needed with discharge planning.
--- NOTE | 2018-10-02 13:41 | NUR ---
ORDERS RECEIVED FOR EVAL AND TREAT. SPOKE WITH Pt WHO STATES SHE JUST GOT DONE WITH O.T. EVAL WITHOUT ISSUES AND THEY WERE SIGNING OFF ON HER. STATES SHE IS HAVING NO DIFFICULTY WITH MOBILITY AND FEELS FINE IF THEY LET HER GO HOME TOMORROW. DECLINING FORMAL P.T. EVAL STATING SHE HAD NO DIFFICULTY GETTING OUT OF BED WITH O.T.
--- NOTE | 2018-10-02 15:15 | NUR ---
ASSUMED PT CARE 0645 ALERT AND ORIENTED X4, HAS QUESTIONS FOR BOTH HAROON AND MARIO REGARDING PREVENTATIVE MEASURES TO KEEP FROM HAVING COPD EXACERBATION AGAIN. 0900 HAROON AT BEDSIDE, IN DETAILED DISCUSSION REGARDING PREVENTATIVE MEASURES AND MEDICATIONS, PT VERY TEARFUL AND SLIGHTLY AGGITATED WITH INTERACTION. PT WOULD LIKE DR MARTIN TO DISCUSS HER LUNG FUNCTION AND STEROID USAGE AND DOSAGE. 1100 DR MARTIN AT BEDSIDE-PT SEEMED CALM AND RECEPTIVE TO DISCUSSION. WILL CONTINUE TO MONITOR.
[2018-10-03 00:51] VITALS: BP 127/80
--- NOTE | 2018-10-03 03:53 | NUR ---
ASSESSMENT CHARTED. VSS. PT DENIES SOA, N/V, PAIN, OR CONCERN. 02 PRN NC. PT IN HOPES TO GO HOME SOON. PT QUESTIONED LOVENOX BUT ALLOWED WHEN EDUCATED. STATES SHES TRYING TO SLOW DOWN SMOKING TO 1/2 A PK A DAY. WILL CONTINUE TO MONITOR AND WITH POC.
[2018-10-03 04:55] VITALS: BP 130/74
[2018-10-03 08:02] VITALS: BP 145/82
[2018-10-03] MEDS ORDERED: PREDNISONE 20 M20 MG PO (12:21)
[2018-10-03] MEDS ORDERED: LEVALBUTER1.25 MG/3 INH (12:21)
[2018-10-03 13:12] VITALS: BP 145/82
== END 2018-10-03 13:33 | disposition home or self-care (01) | DRG 189 ==
LOC: ER 02:04 → EROBS 02:24 → ICU 02:24 → EROBS 02:29 → ICU 03:37 → 2N 10-02 17:28 → ENTRNSPT 10-03 13:25 → EDTRNSPTSTS 10-03 13:28 → 2N 10-03 13:33
PROVIDERS: Emergency Medicine; Internal Medicine Pulmonary Disease; Nurse Practitioner Family; ADMIT Internal Medicine
PROC: 5A09357 Assistance with Respiratory Ventilation, Less than 24 Consecutive Hours, Continuous Positive Airway Pressure (ICD-10-PCS; principal; 2018-10-01)
DX: J96.22 Acute and chronic respiratory failure with hypercapnia (principal); E44.0 Moderate protein-calorie malnutrition; Z68.1 Body mass index [BMI] 19.9 or less, adult; J44.1 Chronic obstructive pulmonary disease with (acute) exacerbation; F17.210 Nicotine dependence, cigarettes, uncomplicated; F41.1 Generalized anxiety disorder; J43.9 Emphysema, unspecified; J45.909 Unspecified asthma, uncomplicated; D82.4 Hyperimmunoglobulin E [IgE] syndrome; Z79.899 Other long term (current) drug therapy; Z71.6 Tobacco abuse counseling; Z91.19 Patient's noncompliance with other medical treatment and regimen; J96.21 Acute and chronic respiratory failure with hypoxia
CPT/HCPCS: 10078; 10081

== ENCOUNTER 2018-10-11 00:12 | Inpatient (IN) | payer OTHER ==
[~2018-10-11] VITALS: Ht 154.9 cm; Wt 46.8 kg
[2018-10-11] VITALS (30 sets, daily range): BP systolic 73–195; BP diastolic 49–141
[~2018-10-11 00:12] MED LIST changes: +LEVALBUTER1.25 MG/3 INH
[2018-10-11] MEDS ORDERED: ALBUTEROL2.5 MG/0.1 (00:24)
[2018-10-11 00:46] LABS: HEMATOCRIT 48.7 % (37.0-47.0); HEMOGLOBIN 16.5 gm/dL (12.0-15.0); MCH 34.1 pg (26.0-34.0); MCHC 33.9 g/dL (28.0-37.0); MCV 100.7 fL (80.0-100.0); PLATELET COUNT 295 thou/uL (150-400); RBC 4.83 mil/uL (4.20-5.00); RDW 13.4 % (10.5-14.5); WBC 24.8 thou/uL (4.0-11.0)
[2018-10-11 00:55] LABS: ANION GAP 4 mmol/L (7-16); BUN 18 mg/dL (7-18); CALCIUM 8.9 mg/dL (8.5-10.1); CHLORIDE 103 mmol/L (98-107); CO2 33 mmol/L (21-32); CREATININE 0.7 mg/dL (0.6-1.0); GLUCOSE 144 mg/dL (74-106); POTASSIUM 4.6 mmol/L (3.5-5.1); SODIUM 140 mmol/L (136-145)
[2018-10-11 01:03] LABS: TROPONIN-I <0.06 ng/mL (<0.06)
[2018-10-11 01:09] LABS: BE(vivo) -1.1 mmol/L (-2 to +3); HCO3 27.3 mmol/L (22.0-26.0); PCO2 59.5 mmHg (35.0-45.0); PO2 174.2 mmHg (80.0-100.0)
[2018-10-11 01:10] LABS: pH 7.279 (7.360-7.450)
[2018-10-11 01:42] LABS: ABSOLUTE NEUTROPHILS 19.6 thou/uL (1.4-8.2); ANISOCYTOSIS 1+; PLATELET ESTIMATE NORMAL; POIKILOCYTOSIS 1+; POLYCHROMASIA 1+
--- NOTE | 2018-10-11 07:00 | NUR ---
Pt received into room 243 earlier this am, made comfortable in bed and monitor applied. See rhythm strip. VS stable and SpO2 adequate on current BiPap settings. Taking PO fluids with no c/o nausea. at bedside for support and all questions regarding POC discussed. PRN ativan given for breakthrough restlessness with desired effect achieved and pt now resting comfortably. Continue with POC.
[2018-10-11 11:11] LABS: BE(vivo) -1.1 mmol/L (-2 to +3); HCO3 27.8 mmol/L (22.0-26.0); sO2 95.9 % (92.0-98.0)
[2018-10-11 11:12] LABS: PCO2 65.4 mmHg (35.0-45.0); pH 7.247 (7.360-7.450)
[2018-10-11 13:33] LABS: BE(vivo) -1.1 mmol/L (-2 to +3); PO2 72.2 mmHg (80.0-100.0); sO2 91.4 % (92.0-98.0)
[2018-10-11 13:34] LABS: PCO2 66.6 mmHg (35.0-45.0); pH 7.242 (7.360-7.450)
[2018-10-11 16:07] LABS: BE(vivo) 1.1 mmol/L (-2 to +3); HCO3 29.9 mmol/L (22.0-26.0); PO2 72.1 mmHg (80.0-100.0)
[2018-10-11 16:09] LABS: PCO2 66.1 mmHg (35.0-45.0); pH 7.274 (7.360-7.450)
[2018-10-11 18:14] LABS: BE(vivo) -3.8 mmol/L (-2 to +3); HCO3 24.9 mmol/L (22.0-26.0); PCO2 60.8 mmHg (35.0-45.0); PO2 239.9 mmHg (80.0-100.0); sO2 99.4 % (92.0-98.0)
[2018-10-11 18:15] LABS: pH 7.231 (7.360-7.450)
--- NOTE | 2018-10-11 18:46 | NUR ---
CONSULTED TO PLACE A PICC FOR A PATIENT NEEDING ADDITIONAL ACCESS AFTER INTUBATION. ORDER AND CONSENT NOTED. THE PATIENT IS SEDATED. THE RUE BASILIC WAS WIDLEY PATENT. A #5F TRIPLE LUMEN POWER PICC WAS PLACED PER HOSPITAL POLICY AFTER A BEDSIDE TIMEOUT WAS COMPLETED. PICC WAS TRIMMED TO 37CM AND ADVANCED WITHOUT DIFFICULTY. A STAT CHEST XRAY WAS ORDERED TO CONFIRM PLACEMENT
[2018-10-12] VITALS (56 sets, daily range): BP systolic 88–164; BP diastolic 53–101
[2018-10-12 04:50] LABS: CALCIUM 8.6 mg/dL (8.5-10.1); CREATININE 0.8 mg/dL (0.6-1.0); POTASSIUM 4.3 mmol/L (3.5-5.1)
[2018-10-12 05:03] LABS: BE(vivo) -1.5 mmol/L (-2 to +3); HCO3 22.6 mmol/L (22.0-26.0); PCO2 36.4 mmHg (35.0-45.0); PO2 96.4 mmHg (80.0-100.0); pH 7.411 (7.360-7.450); sO2 97.4 % (92.0-98.0)
[2018-10-12 05:31] LABS: HEMATOCRIT 39.8 % (37.0-47.0); MCH 34.2 pg (26.0-34.0); MCV 100.4 fL (80.0-100.0); RBC 3.96 mil/uL (4.20-5.00); RDW 13.1 % (10.5-14.5); WBC 17.5 thou/uL (4.0-11.0)
[2018-10-12 05:39] LABS: HEMOGLOBIN 13.5 gm/dL (12.0-15.0)
--- NOTE | 2018-10-12 07:48 | NUR ---
ASSUMED CARE OF PT AT 1900. PT SEDATED ON PROPOFOL PER VENT MANAGMENT. PT ABLE TO OPEN EYES TO VERBAL STIMULI AND FOLLOW COMMANDS. PT NODS APPROPRITELY TO QUESTIONS. BILATERAL SOFT WRIST RESTRAINS. PT ST ON THE MONITOR WITH FREQUENT PVCs. TOLERATING VENT. ABG MUCH IMPROVED THIS AM. EDUCATION PROVIDED TO AT BEDSIDE BY RN. PT MAKING SLIGHT PROGRESS TOWARDS GOALS.
--- NOTE | 2018-10-12 10:13 | NUR ---
CM ASSESSMENT: CASE OPENED FOR DC PLANNING. CLINICAL INFO REVIEWED. PT IS KKNOWN TO CM FROM 2 RECENT [facility] ADMITS. PT LIVES WITH SPOUSE IN 1 LEVEL HOME AND WAS INDEPENDENT WITH ADLS DOCK CLERK. HOME O2 AND NEBULIZER FROM [facility]. ADMITS WITH ACUTE ON CHRONIC RESP FAILURE, COPD/ASTHMA EXACERBATION REQUIRING CONTINUOUS BIPAP FROM ADMIT TO LATE AFTERNOON 10/11/18 WHEN PT INTUBATED BY DR. MARTIN. PT'S SPOUSE HERE MOST OF YESTERDAY AND AGAIN THIS AM. SPOUSE IS DPOA. PT ON LOW DOSE PROPOFOL GTT ANAD ABLE TO FOLLOW COMMANDS. UNCLEAR DC PLAN AT PRESENT. CM AVAILABLE TO ASSIST WITH DC PLAN NEEDED.
[2018-10-13] VITALS (63 sets, daily range): BP systolic 91–138; BP diastolic 52–82
--- NOTE | 2018-10-13 04:28 | NUR ---
ASSUMED CARE OF PT. AT 1900. PT. CAN FOLLOW COMMANDS WITH LIGHT SEDATION. PT. IS RESTLESS AT TIMES, AND CAN BE IMPULSIVE. DENIES PAIN AND IS AFEBRILE. MEDICATION TITRATION CAHRTED. LEVOPHED STILL INDICATED FOR LOW BP WITH PROPOFOL USE. ASSESSMENTS AND VITAL SIGNS CHARTED. NO NEW CHANGES, PT. IS PROGRESSING TOWARDS GOALS. WILL CONTINUE TO MONITOR.
[2018-10-13 05:45] LABS: HEMATOCRIT 34.6 % (37.0-47.0); HEMOGLOBIN 11.7 gm/dL (12.0-15.0); MCHC 33.8 g/dL (28.0-37.0); MCV 100.8 fL (80.0-100.0); RBC 3.44 mil/uL (4.20-5.00); RDW 13.2 % (10.5-14.5); WBC 12.3 thou/uL (4.0-11.0)
[2018-10-13 05:54] LABS: CALCIUM 8.4 mg/dL (8.5-10.1); CREATININE 0.5 mg/dL (0.6-1.0); POTASSIUM 4.4 mmol/L (3.5-5.1)
[2018-10-13 13:17] LABS: BE(vivo) 1.6 mmol/L (-2 to +3); HCO3 28.9 mmol/L (22.0-26.0); PCO2 57.2 mmHg (35.0-45.0); PO2 80.9 mmHg (80.0-100.0); sO2 94.9 % (92.0-98.0)
[2018-10-13 13:18] LABS: pH 7.321 (7.360-7.450)
--- NOTE | 2018-10-13 18:17 | NUR ---
PATIENT ON LIGHT SEDATION, FOLLOWS COMMANDS AND ABLE TO NOD TO YES/NO QUESTIONS DURING SEDATION VACATION. INTERMITTENTLY BETWEEN NORMAL SINUS RHYTHM AND BIGEMINY ON PROFESSOR OF INDUSTRIAL TECHNOLOGY. ON VENTILATIOR, FIO2 30% COMPLETED WEANING TRIAL TODAY. OG PRESENT, TOLERATING TUBE FEEDING. ERIC PATENT AND DRAINING. RIGHT PICC LINE INTACT. BILATERAL RESTRAINTS. BLOOD SUGAR MONITORED, FAMILY UPDATED ON THE PLAN OF CARE, NO SIGNS OF ACUTE DISTRESS NOTED AT THIS TIME. WILL CONTINUE TO MONITOR.
[2018-10-14] VITALS (47 sets, daily range): BP systolic 100–164; BP diastolic 51–106
[2018-10-14 05:42] LABS: BE(vivo) 5.3 mmol/L (-2 to +3); HCO3 31.8 mmol/L (22.0-26.0); PCO2 55.5 mmHg (35.0-45.0); PO2 107.7 mmHg (80.0-100.0); pH 7.376 (7.360-7.450); sO2 97.7 % (92.0-98.0)
[2018-10-14 05:55] LABS: HEMOGLOBIN 12.1 gm/dL (12.0-15.0); MCH 34.8 pg (26.0-34.0); MCHC 34.5 g/dL (28.0-37.0); MCV 100.9 fL (80.0-100.0); RBC 3.47 mil/uL (4.20-5.00); RDW 13.1 % (10.5-14.5)
[2018-10-14 05:56] LABS: CALCIUM 8.5 mg/dL (8.5-10.1); CREATININE 0.6 mg/dL (0.6-1.0); POTASSIUM 4.1 mmol/L (3.5-5.1)
--- NOTE | 2018-10-14 06:22 | NUR ---
RECEIVED REPORT FROM LAYLA AND ASSUMED PATIENT CARE AT 1900. REVIEWED LABS, MEDS, ORDERS, AND CARE PLAN. PATIENT IS INTUBATED AND SEDATED WITH PROPOFOL INFUSING. PATIENT ALSO NOTED TO HAVE LEVOPHED INFUSING. PATIENT FOLLOWS COMMANDS APPROPRIATELY DURING SEDATION VACATION. SPOUSE UPDATED ON CARE PLAN. HOURLY ROUNDING COMPLETED AND ASSESSMENTS CHARTED. PATIENT IS PROGRESSING TOWARD GOAL.
[2018-10-14 09:09] LABS: BE(vivo) 0.1 mmol/L (-2 to +3); HCO3 27.4 mmol/L (22.0-26.0); PO2 80.5 mmHg (80.0-100.0); sO2 94.6 % (92.0-98.0)
[2018-10-14 09:10] LABS: pH 7.307 (7.360-7.450)
--- NOTE | 2018-10-14 17:53 | EKG ---
[address] [place] [address] ELECTROCARDIOGRAM REPORT Name: KEVINCULLEN NAHUN Room #: 243-[facility] IN ..#: [id number] ������������������ Admission: 10/11/18 ������������������ Attend Phys: Elgin Camilo MD Discharge: ������������������ Date of : 60 Report #: [id number] ����������������������������������������������������������������� [id number] THIS REPORT FOR: //name// [facility] ED Test Date: 2018-10-11 Test Time: 00:27:46 Pat Name: CULLEN BROWN Department: Room: 243 Gender: F Launderer Hand: nancy : 1960 Requested By: Zack Spaulding Order Number: [id number] MD: Bay Cruz Measurements Intervals [place] Rate: 145 P: 98 VT: 139 QRS: 93 QRSD: 140 T: 80 QT: 287 QTc: 446 Interpretive Statements Sinus tachycardia Ventricular bigeminy Right atrial abnormality Poor R wave progression Compared to ECG 10/01/2018 02:16:33 No significant change was found Electronically Signed On 10-14-2018 17:53:06 CDT by Bay Cruz [email or web address] ��������������������������������������������� <ELECTRONICALLY SIGNED> ���������������������������������������� By: Bay Cruz MD, [facility] ��������������������������������������������� 10/14/18 1753 0027 0027 Bay Cruz MD, [facility] /EPI
--- NOTE | 2018-10-14 17:54 | EKG ---
[place] [address] [facility] [place] [address] ELECTROCARDIOGRAM REPORT Name: KEVINCULLENSHARMAINE GARNICA Room #: 243-P [facility] IN ..#: [id number] ������������������ Admission: 10/11/18 ������������������ Attend Phys: Elgin Camilo MD Discharge: ������������������ Date of : 60 Report #: [id number] ����������������������������������������������������������������� [id number] THIS REPORT FOR: //name// [facility] ED Test Date: 2018-10-11 Test Time: 00:41:18 Pat Name: CULLEN BROWN Department: Room: 243 Gender: F Cloth Opener Hand: nancy : 1960 Requested By: Zack Spaulding Order Number: [id number] MD: Bay Cruz Measurements Intervals [place] Rate: 145 P: [place]: QRS: 88 QRSD: 93 T: QT: 276 QTc: 429 Interpretive Statements Sinus tachycardia Ventricular bigeminy Right atrial abnormality Poor R wave progression Artifact in lead(s) Compared to ECG 10/01/2018 02:16:33 No significant change was found Electronically Signed On 10-14-2018 17:53:58 CDT by Bay Cruz [email or web address] ��������������������������������������������� <ELECTRONICALLY SIGNED> ���������������������������������������� By: Bay Cruz MD, [facility] ��������������������������������������������� 10/14/18 1753 0041 0041 Bay Cruz MD, [facility] /EPI
--- NOTE | 2018-10-14 18:12 | EKG ---
[address] [place] [address] ELECTROCARDIOGRAM REPORT Name: CULLEN BROWN NAHUN Room #: 243-[facility] IN ..#: [id number] ������������������ Admission: 10/11/18 ������������������ Attend Phys: Elgin Camilo MD Discharge: ������������������ Date of : 60 Report #: [id number] ����������������������������������������������������������������� [id number] THIS REPORT FOR: //name// [facility] Test Date: 2018-10-12 Test Time: 09:53:15 Pat Name: CULLEN BROWN Department: Room: 243 P Gender: F Sample Worker: RICHARD : 1960 Requested By: Elgin Camilo Order Number: [id number] MD: Bay Cruz Measurements Intervals [place] Rate: 114 P: 90 ME: 128 QRS: 84 QRSD: 83 T: 72 QT: 333 QTc: 459 Interpretive Statements Sinus tachycardia Ventricular bigeminy Right atrial abnormality Abnormal R-wave progression, late transition Compared to ECG 10/01/2018 02:16:33 No significant changes Electronically Signed On 10-14-2018 18:12:14 CDT by Bay Cruz [email or web address] ��������������������������������������������� <ELECTRONICALLY SIGNED> ���������������������������������������� By: Bay Cruz MD, [facility] ��������������������������������������������� 10/14/18 1812 0953 0953 Bay Cruz MD, [facility] /EPI
--- NOTE | 2018-10-14 18:27 | NUR ---
PATIENT ON LIGHT SEDATION, ABLE TO FOLLOW COMMANDS AND NOD TO YES/NO QUESTIONS DURING SEDATION VACATION. UPPER EXTREMITY MODERATE SHIP WORKER, ABLE TO MOVE LOWER EXTREMITIES. SINUS RHYTHM TO BIGEMINY ON KILN CHARGER. VENTILATOR 30% FIO2, PATIENT COMPLETED WEANING TRIAL, NOT READY TO EXTOBATE PER DR. MARTIN. OG PRESENT, TOLERATING TUBE FEEDING AND WATER FLUSHES. ERIC PATENT WITH ADEQUATE OUTPUT. BLOOD SUGAR MONITORED. FAMILY UPDATED ON THE PLAN OF CARE, NO SIGNS OF ACUTE DISTRESS NOTED AT THIS TIME. WILL CONTINUE TO MONITOR.
[2018-10-15] VITALS (24 sets, daily range): BP systolic 114–180; BP diastolic 57–122
[2018-10-15 05:03] LABS: CALCIUM 8.5 mg/dL (8.5-10.1); CREATININE 0.6 mg/dL (0.6-1.0); POTASSIUM 4.1 mmol/L (3.5-5.1)
[2018-10-15 05:12] LABS: HEMATOCRIT 32.1 % (37.0-47.0); HEMOGLOBIN 11.1 gm/dL (12.0-15.0); MCH 34.9 pg (26.0-34.0); MCHC 34.7 g/dL (28.0-37.0); MCV 100.7 fL (80.0-100.0); RBC 3.19 mil/uL (4.20-5.00); RDW 13.3 % (10.5-14.5); WBC 7.7 thou/uL (4.0-11.0)
--- NOTE | 2018-10-15 06:00 | NUR ---
REMAINS INTUBATED AND SEDATED WITH PROPOFOL GTT AT 40 MCG. FOLLOWS SIMPLE COMMANDS. ROBLES TO COMMAND. ANIKET TUBE FEEDING DENIES PAIN. 1700 CC UO THIS SHIFT. BATHED REPOSITIONED. VSS SINUS RHYTHM WITH RUNS OF BIGIMINY AND TRIGIMINY. DOCTORS AWARE. WILL CONT TO MONITOR.
[2018-10-15 11:27] LABS: BE(vivo) 12.3 mmol/L (-2 to +3); HCO3 38.2 mmol/L (22.0-26.0); PCO2 54.5 mmHg (35.0-45.0); PO2 94.7 mmHg (80.0-100.0); pH 7.464 (7.360-7.450); sO2 97.4 % (92.0-98.0)
--- NOTE | 2018-10-15 17:12 | NUR ---
ASSESSMENTS AND INTERVENTIONS DOCUMENTED. PER PHYSCIAN ORDER WEANED OFF PROPFOL AND PPRECEDEX INTIATED.PATIENT EXTUBATED AND PLACED ON FACE SHIELD 35%. PRECEDEX PATIENT TOLERATED EXTUBATION WELL. OGT FEEDING DISCONTINUED, PATIENT WEANED OFF OF PRECEDEX AND IS RESTING QUIETLY AT THIS TIME. FAMILY EDUCATIED ON INTERVENTIONS AND PLAN OF CARE. FAMILY AT BED SIDE. PLAN OF CARE IS TO CONTINUE TO MONITOR RESPIRTORY STATUS, BREATHING EFFORT AND INCREASE OXYGENATION NECESSARY.
[2018-10-15 21:15] LABS: ANION GAP < 0 mmol/L (7-16); BUN 16 mg/dL (7-18); CALCIUM 8.6 mg/dL (8.5-10.1); CHLORIDE 104 mmol/L (98-107); CO2 42 mmol/L (21-32); CREATININE 0.4 mg/dL (0.6-1.0); GLUCOSE 89 mg/dL (74-106); POTASSIUM 3.8 mmol/L (3.5-5.1); SODIUM 145 mmol/L (136-145)
--- NOTE | 2018-10-15 22:39 | NUR ---
[facility] Pt c/o of chest pressure with deep breathing. Bp 159/74. RR 16 Sat 99. States she can't breath. Notified APPLICATION LEAD. ekg done, troponin 0.06. Morphine given as ordered. Pt states now painfree, and she thinks it was Anxiety. Cont to monitor pt. Cont plan of care. Progressing toward goals
[2018-10-16] VITALS (23 sets, daily range): BP systolic 112–166; BP diastolic 59–92
[2018-10-16 05:41] LABS: HEMATOCRIT 34.9 % (37.0-47.0); HEMOGLOBIN 12.3 gm/dL (12.0-15.0); MCH 34.9 pg (26.0-34.0); MCHC 35.2 g/dL (28.0-37.0); MCV 99.2 fL (80.0-100.0); RBC 3.51 mil/uL (4.20-5.00); RDW 13.1 % (10.5-14.5); WBC 8.8 thou/uL (4.0-11.0)
[2018-10-16 05:52] LABS: CALCIUM 8.3 mg/dL (8.5-10.1); CREATININE 0.4 mg/dL (0.6-1.0)
--- NOTE | 2018-10-16 16:09 | NUR ---
SW reviewed chart and spoke with nursing and attending physician. Pt was extubated yesterday and is tolerating O2 via NC. SW met with pt and spouse at bedside. Introduced role of SW. Pt is alert/orientated x 4. Pt confirms that she still has O2 and nebulizer in place through [facility]. Pt has not had HH in the past. Pt's PCP is Dr. Varsha Hardin. Plan is for pt to return home when medically stable. SW is following to assist as needed with discharge planning.
--- NOTE | 2018-10-16 18:06 | NUR ---
ASSESMENTS AND INTERVENTIONS DOCCUMENTED. SWALLOWING EVALUATION COMPLETED. SWALLOW EVAL PERFORMED PER PROTOCOL, 30 ML WATER CHALLANGE AND TRIALED PATIENT ON GRAM CRACKER. PATIENT'S VOICE QUALITY IMPROVED WITH ORAL INTAKE. NO APPEARANT SIGNS OF ASPIRATION, CLEARING THROAT, COUGHING, OR GAGGING NOTED. GAG REFLEX IN TACT . PER DR. FERRO, IF SIGNS OF ASPIRATION, CONSULT SPEECH THERAPY. PATIENT AND FAMILY EDUCATED ON SIGNS OF DYSPHAGIA AND WERE INSTUCTED TO NOTIFY RN IN ANY COMPLICATIONS OCCURED. PATIENT TOLERATED EVALUATION. PATIENT ADVANCED FROM NPO TO REGULAR DIET. PLAN OF CARE IS TO CONTINUE TO MONITOR RESPIRATORY STATUS AND CONTROL PAIN.
[2018-10-17] VITALS (24 sets, daily range): BP systolic 110–186; BP diastolic 67–116
[2018-10-17 05:31] LABS: HEMATOCRIT 38.2 % (37.0-47.0); HEMOGLOBIN 13.2 gm/dL (12.0-15.0); MCH 34.2 pg (26.0-34.0); MCHC 34.5 g/dL (28.0-37.0); MCV 99.2 fL (80.0-100.0); RBC 3.85 mil/uL (4.20-5.00); RDW 12.6 % (10.5-14.5); WBC 9.7 thou/uL (4.0-11.0)
[2018-10-17 05:41] LABS: CALCIUM 8.4 mg/dL (8.5-10.1); CREATININE 0.4 mg/dL (0.6-1.0); POTASSIUM 4.1 mmol/L (3.5-5.1)
--- NOTE | 2018-10-17 06:21 | NUR ---
PATIENT ALERT AND ORIENTED X4, PAIN CONTROLLED WITH MEDICATION. ON 2L NASAL CANNULA, DYSPNEA AND DESATS WITH INCREASED ACTIVITY. BIGEMINY ON CLINICAL AIDE. TOLERATING CLEAR LIQUID AND SOFT DIET WITH DECREASED APPETITE. ERIC PATENT AND DRAINING. RIGHT UPPER ARM PICC INTACT. MILD ANXIETY THROUGHOUT THE NIGHT. NO SIGNS OF ACUTE DISTRESS NOTED AT THIS TIME. WILL CONTINUE TO MONITOR.
--- NOTE | 2018-10-17 07:50 | EKG ---
[place] [address] [facility] [place] [address] ELECTROCARDIOGRAM REPORT Name: CULLEN BROWN NAHUN Room #: 243-[facility] IN ..#: [id number] ������������������ Admission: 10/11/18 ������������������ Attend Phys: Elgin Camilo MD Discharge: ������������������ Date of : 60 Report #: [id number] ����������������������������������������������������������������� [id number] THIS REPORT FOR: //name// [facility] Test Date: 2018-10-15 Test Time: 20:38:47 Pat Name: CULLEN BROWN Department: Room: 243 P Gender: F Petroleum Geologist: Siomara YUEN : 1960 Requested By: Maddi Mendoza Order Number: [id number] MD: Bay Cruz Measurements Intervals [place] Rate: 106 P: 88 TX: 123 QRS: 79 QRSD: 81 T: 78 QT: 339 QTc: 451 Interpretive Statements Sinus tachycardia Ventricular bigeminy Right atrial abnormality Poor R wave progression Compared to ECG 10/12/2018 09:53:15 No significant change was found Electronically Signed On 10-17-2018 7:49:51 CDT by Bay Cruz [email or web address] ��������������������������������������������� <ELECTRONICALLY SIGNED> ���������������������������������������� By: Bay Cruz MD, [facility] ��������������������������������������������� 10/17/18 0749 37 37 Bay Curz MD, [facility] /EPI
--- NOTE | 2018-10-17 11:51 | NUR ---
PATIENT WAKE THIS AM, PLEASANT AND COOPERATIVE WITH CARES. DENIES PAIN, UNLESS SHE IS GETTING A BREATHING TREATMENT AND THEN SHE STATES THAT "MY CHEST FEELS AUSTIN THERE IS A LOT OF PRESSURE ON IT". MORPHINE GIVEN AND DOES HELP. PATIENTS BP AND HEARTRATE REMAIN ELEVATED, CALLED DR OSPINA AND NEW ORDERS RECEIVED FOR XANAX AND HYDRALIZINE PRN. XANAX GIVEN AND PATIENT IS MUCH MORE COMFORTABLE. AT BEDSIDE FOR MOST OF THE MORNING. NO FURTHER CONCERNS AT THIS TIME.
--- NOTE | 2018-10-17 15:12 | NUR ---
SW reviewed chart and spoke with attending physician. PT/OT ordered to evaluate pt. Pt to transfer from ICU to 3W today. Plan is for pt to return home when medically stable. SW is following to assist as needed with discharge planning.
--- NOTE | 2018-10-17 18:33 | NUR ---
Assumed care around 1700 this evening as the patient transferred from [facility] to the ICU. The patient has been reserved and quiet. Patient eating dinner and finishing supplement during initial transfer assessment. The patient appears to speak quietly to reserve air. Lungs diminished... pt on 4LNC. Pain assessement a 4 on a scale of 1-10 for non-cardiac chest pain. Will have patient sign sheet stating understanding of hospital telemetry interference concerns. Will continue to monitor.
[2018-10-18] VITALS: BP 127/78
--- NOTE | 2018-10-18 03:30 | NUR ---
High fall risks, fall precautions in place.
[2018-10-18 04:25] VITALS: BP 124/80
[2018-10-18 06:15] LABS: ABSOLUTE NEUTROPHILS 12.9 thou/uL (1.4-8.2); BASOPHILS 0.1 % (0.0-2.0); HEMATOCRIT 38.9 % (37.0-47.0); HEMOGLOBIN 13.2 gm/dL (12.0-15.0); LYMPHOCYTES 2.4 % (24.0-44.0); MCV 99.9 fL (80.0-100.0); MONOCYTES 5.6 % (1.0-8.0); PLATELET COUNT 241 thou/uL (150-400); POLYS 91.9 % (36.0-66.0); RBC 3.89 mil/uL (4.20-5.00); RDW 12.6 % (10.5-14.5)
[2018-10-18 06:35] LABS: ALBUMIN 2.6 g/dL (3.4-5.0); CALCIUM 8.9 mg/dL (8.5-10.1); CREATININE 0.5 mg/dL (0.6-1.0); POTASSIUM 3.7 mmol/L (3.5-5.1); TOTAL BILIRUBIN 0.5 mg/dL (<0.1-1.0); TOTAL PROTEIN 5.6 g/dL (6.4-8.2)
[2018-10-18 07:29] LABS: BE(vivo) 9.2 mmol/L (-2 to +3); HCO3 36.8 mmol/L (22.0-26.0); PCO2 62.5 mmHg (35.0-45.0); PO2 90.8 mmHg (80.0-100.0); pH 7.388 (7.360-7.450); sO2 96.6 % (92.0-98.0)
[2018-10-18 07:40] VITALS: BP 150/100
[2018-10-18 11:21] VITALS: BP 125/73
[2018-10-18 15:29] VITALS: BP 145/99
--- NOTE | 2018-10-18 15:46 | NUR ---
SW reviewed chart and spoke with attending physician. Pt transferred to 3W from ICU yesterday and is slowly progressing towards goals for discharge. Pt may need a palliative care consult should she not improve. CARINA is following to assist as needed with discharge planning.
[2018-10-18 19:39] VITALS: BP 173/93
[2018-10-19 03:59] VITALS: BP 162/69
[2018-10-19 07:26] VITALS: BP 144/83
--- NOTE | 2018-10-19 07:58 | NUR ---
PT MAKING SLOW PROGRESS TOWARDS GOALS. ON O2 4L PER NC THROUGHOUT THE NIGHT. SEE VS. LUNGS DIMINISHED THROUGHOUT. MORPHINE PRN FOR CHEST DISCOMFORT. SHE RATES THE DISCOMFORT AT 2/10 WITH A DECREASE TO 1/10 AFTER DOSING.
[2018-10-19 11:22] VITALS: BP 140/81
--- NOTE | 2018-10-19 14:27 | NUR ---
SW reviewed chart and spoke with nursing and attending physician. Pt remains on IV steroids and IV abx. Pt not progressing towards goals for discharge. Pt may need palliative care consult should pt not improve. CARINA is following to assist as needed with discharge planning.
[2018-10-19 15:07] VITALS: BP 169/91
--- NOTE | 2018-10-19 17:17 | NUR ---
ASSUMED CARE OF PT AT 0700. PT ALERT AND ORIENTED IN MILD RESP DISTRESS. MORPHINE AND XANAX GIVEN FOR GOOD RELIEF. UP W/ 1 ASSIST TO CHAIR FOR MOST OF DAY. LUNG SOUNDS DIMINISHED AND WHEEZES BILAT. VITALS STABLE. SLOW PROGRESS TOWARD POC GOALS.
[2018-10-19 20:15] VITALS: BP 166/581; BP 166/81
[2018-10-20 04:09] VITALS: BP 170/86
--- NOTE | 2018-10-20 04:18 | NUR ---
PATIENT IS NOT PROGRESSING IN CARE PLAN. VITAL SIGNS STABLE WITH PATIENT HAVING NO COMPLAINTS OF NAUSEA. SHE DID COMPLAIN OF MINIMAL CHEST PAIN WHICH WAS TREATED EFFECTIVELY EARLY IN SHIFT. MOSTLY ORIENTED, PATIENT IS FORGETFUL AT TIMES BORDERING ON CONFUSION. SHE HAS EXHIBITED THE ABILITY TO CALL FOR NEEDS. BREATHING STABLE ON OXYGEN WITH PATIENT ABLE TO TOLERATE BIPAP FOR GOOD PORTION OF THE NIGHT. PATIENT IS ANXIOUS AND NURSE HAS DONE THEIR BEST TO ALLEVIATE THROUGH MEDICATION AND REASSURANCE. CONTINUE PLAN OF CARE.
[2018-10-20 07:39] VITALS: BP 184/65
[2018-10-20 10:37] LABS: URINE BILIRUBIN NEGATIVE (Negative); URINE BLOOD 3+ (Negative); URINE CLARITY CLEAR; URINE COLOR YELLOW; URINE GLUCOSE-RANDOM* NEGATIVE (Negative); URINE KETONES NEGATIVE (Negative); URINE NITRITE-REFLEX NEGATIVE (Negative); URINE PROTEIN (DIPSTICK) NEGATIVE (Negative); URINE UROBILINOGEN 0.2 E.U./dl (0.2-1.0)
[2018-10-20 10:38] LABS: URINE LEUKOCYTES-REFLEX 1+ (Negative)
[2018-10-20 10:46] LABS: BACTERIA-REFLEX None Seen /HPF (None Seen); CASTS None Seen /LPF (None Seen); CRYSTALS None Seen /LPF (None Seen); SQUAMOUS None Seen /LPF (0-3); URINE RBC >20 Many /HPF (0-2); URINE WBC-REFLEX 6-15 Few /HPF (0-5)
[2018-10-20 11:27] VITALS: BP 136/70
[2018-10-20 15:50] VITALS: BP 156/99
--- NOTE | 2018-10-20 16:22 | NUR ---
PT HAS EXPRESSED WISHES TO BE PALLITIVE CARE..NOTIFIED DR OSPINA/KASIE AND THEY SPOKE WITH HER..DR SCOTT CONSULTED..LUNGS COARSE..3L NC...WILL MONITOR
[2018-10-20 19:20] VITALS: BP 144/90
[2018-10-21 04:15] VITALS: BP 130/66
--- NOTE | 2018-10-21 07:30 | NUR ---
VITAL SIGNS STABLE WITH NO COMPLAINTS OF PAIN OR NAUSEA. PATIENT HAS HAD NO TROUBLES BREATHING EVIDENCED BY SPOT OXYGENATION CHECKS. XANAX FOR ANXIETY TO GOOD EFFECT. PATIENT IS ORIENTED AND ABLE TO MAKE DECISIONS FOR HERSELF REGARDING CARE. NURSE SPOKE TO PATIENT AT LENGTH ABOUT HER RIGHT TO DECIDE THE TREATMENTS AND MEDICATIONS SHE DESIRES. CONTINUE PLAN OF CARE.
[2018-10-21 07:58] VITALS: BP 135/74
[2018-10-21 11:26] VITALS: BP 147/73
[2018-10-21 16:43] VITALS: BP 121/82
[2018-10-21 20:06] VITALS: BP 124/89
--- NOTE | 2018-10-21 20:19 | NUR ---
PT EDUCATED REGARDING XANAX PRN ANXIETY...SHE REQUESTS XANAX PRIOR TO BREATHING TX THEY MAKE HER ANXIOUS...
[2018-10-22 04:41] VITALS: BP 112/72
[2018-10-22 07:50] VITALS: BP 119/78
--- NOTE | 2018-10-22 07:52 | NUR ---
END OF SHIFT SUMMARY: Pt has remained stable overnight. Headache at beginning of shift relieved with Ibuprofen. Remains on 3 L cannula, sat > 92%; lungs remain very coarse with coarse crackles throughout. Monitor remains sinus rhythm with bigemeny and PVC's. Frequent c/o of anxiety; xanax given before breathing treatments per pt request. Winn patent; urine output adequate.
--- NOTE | 2018-10-22 10:28 | NUR ---
Nutrition: pt seen per followup. Admit with COPD, emphysema. S/P extubation and ICU stay. Now on regular diet eating 75-100% of meals. bringing in outside food as well. Drinks Ensure supplements BID. No new weight since 10/17. BG 89-178, on solumedrol. Noted pt has voiced desire for palliative care and Dr Lynch is consulted. Continue interventions and change to low risk.
[2018-10-22 11:29] VITALS: BP 112/81
--- NOTE | 2018-10-22 14:22 | NUR ---
SW reviewed chart and spoke with attending physician. Pt was made a DNR over the weekend. Palliative care consult ordered to meet with pt and family to discuss treatment goals. CARINA is following to assist as needed with discharge planning.
--- NOTE | 2018-10-22 15:10 | NUR ---
VASCULAR ACCESS NURSE ROUNDING. THIS PATIENT IS ON IVF AND 1 NON VESICANT ANTIBIOTIC. SHE CURRENTLY HAS A TRIPLE LUMEN PICC IN WHICH IS NO LONGER NECESSARY SHE HAS VEINS THAT ARE APPROPRIATE FOR A PERIPHERAL ACCESS. DISCUSSED THIS WITH HER OPENER TENDER AND SHE WILL SPEAK WITH DR. DA SILVA WHEN HE ROUNDS TO SEE IF HE AGREES WITH PICC REMOVAL
--- NOTE | 2018-10-22 15:18 | NUR ---
VASCULAR ACCESS NURSE ROUNDING. THIS PATIENT HAS A TRIPLE LUMEN PICC THAT IS NO LONGER NECESSARY. SHE HAS ADEQUATE PERIPHERAL VEINS FOR PIV ACCESS. I SPOKE TO THE FAMILY EDUCATOR. SHE WILL CONTACT THE MD TO SEE IF THE LINE CAN BE REMOVED AND AFTER A PERIPHERAL IV IS PLACED
[2018-10-22 16:06] VITALS: BP 131/83
[2018-10-22 19:43] VITALS: BP 128/7; BP 128/77
--- NOTE | 2018-10-22 20:32 | NUR ---
PT HAS BEEN SOA TODAY WITH COARSE LUNGS...ON BIPAP 90% OF SHIFT...BECOMES ANXIOUS WITH BIPAP...SUPPORT GIVEN...
--- NOTE | 2018-10-22 20:41 | NUR ---
PATIENT SPOKE WITH DR SCOTT RE PALLITIVE CARE...STILL PROCESSING IDEA...PLAN POSSIBLE D/C HOME WITH BIPAP AND HH...QUESTIONS ANSWERED BY DR SCOTT..
[2018-10-23 03:58] VITALS: BP 125/88
--- NOTE | 2018-10-23 05:00 | NUR ---
PATIENT IS PROGRESSING IN HER CARE PLAN. VITAL SIGNS STABLE WITH PATIENT HAVING NO COMPLAINTS OF PAIN OR NAUSEA. FULLY ORIENTED PATIENT IS ABLE TO CALL FOR NEEDS AND PARTICIPATE IN CARE. SHE HAS EXPRESSED HIGH ANXIETY AND HAS BEEN TREATED FOR IT ACCORDINGLY. BREATHING STABLE ON OXYGEN EVIDENCED BY SPOT OXYGENATION CHECKS. PATIENT HAS BEEN UP MULTIPLE TIMES TO BEDSIDE COMMODE INCIDENT FREE. CONTINUE PLAN OF CARE.
[2018-10-23 07:38] VITALS: BP 120/79
[2018-10-23 12:30] VITALS: BP 114/71
[2018-10-23 15:36] VITALS: BP 120/85
--- NOTE | 2018-10-23 16:15 | NUR ---
SW reviewed chart and spoke with nursing and attending physician. Palliative Care Physician met with pt last evening. Pt wishes to continue aggressive treatment at this time. Recommendation made for pt to go to a SNF for continued rehab services and medical mgmt. SW met with pt and spouse at bedside. Provided in-network SNF list for review. Pt and spouse to discuss options. SW is following to assist as needed with discharge planning.
[2018-10-23 19:51] VITALS: BP 109/83
--- NOTE | 2018-10-23 20:44 | NUR ---
LUNGS REMAIN COARSE...O2 3L..RT TX SCHEDULED AND PREFERS TO TAKE XANAX PRIOR TO EACH RT TX...
[2018-10-24 03:44] VITALS: BP 125/82
[2018-10-24 07:30] VITALS: BP 113/67
[2018-10-24 11:03] VITALS: BP 126/81
--- NOTE | 2018-10-24 14:07 | NUR ---
SW reviewed chart and spoke with nursing and attending physician. Pt is progressing towards goals for discharge. SW met with pt at bedside to discuss SNF placement. Pt's is out touring SNFs today. Pt or spouse will notify SW when they have chosen a facility. Will need insurance authorization for post acute care. SW is following to assist as needed with discharge planning.
--- NOTE | 2018-10-24 16:08 | NUR ---
DISCHARGE PLANNING. POST ACUTE RECOMMENDED AT DISCHARGE. REFERRAL FAXED TO [facility], FOR POST ACUTE NEEDS. CALL PLACED TO SANDRA TO NOTIFY. SANDRA TO REVIEW REFERRAL AND NOTIFY CM. FOLLOWING TO ASSIST.
[2018-10-24 16:27] VITALS: BP 112/78
--- NOTE | 2018-10-24 17:53 | NUR ---
PT AND CHOSE FACILITY TODAY. CM WILL SET UP FOR DC TO SNF TOMORROW.
[2018-10-24 19:33] VITALS: BP 121/85
[2018-10-25 03:50] VITALS: BP 125/82
[2018-10-25 05:13] LABS: HEMATOCRIT 32.8 % (37.0-47.0); HEMOGLOBIN 11.5 gm/dL (12.0-15.0); MCH 34.9 pg (26.0-34.0); MCHC 34.9 g/dL (28.0-37.0); RBC 3.28 mil/uL (4.20-5.00); RDW 12.8 % (10.5-14.5); WBC 9.3 thou/uL (4.0-11.0)
[2018-10-25 05:22] LABS: CALCIUM 8.4 mg/dL (8.5-10.1); CREATININE 0.6 mg/dL (0.6-1.0); POTASSIUM 3.6 mmol/L (3.5-5.1)
[2018-10-25 07:45] VITALS: BP 120/84
--- NOTE | 2018-10-25 08:08 | NUR ---
Pt. slept some with at bedside. Xanax given for anxiety prior to breathing tx. Denies any pain. Up with assist to bathroom. C/O burning at end of urination. Scheduled pyridium given. Voiding per bathroom , dark orange colored urine. Afebrile. Bed alarm on for safety and she calls appropriately for assistance. O2 at 2L/NC , shortness of breath with exertion but better than what it has been. Making progress towards care plan goals.
[2018-10-25 11:06] VITALS: BP 132/80
--- NOTE | 2018-10-25 14:01 | NUR ---
ASSUMED CARE OF PT AT 0700 THIS SHIFT. PT HAS BEEN COOPERATIVE, HAS DENIED ANY PAIN THIS SHIFT. PT IS CONCERNED WITH CONTROLLING HER ANXIETY, REQUESETS THAT SHE BE GIVEN ANTI-ANXIETY MEDS BEFORE RESPIRATORY TREATMENTS. PT IS READY TO BE DISCHARGED FROM THE HOSPITAL, BUT STILL WAITING ON PLACEMENT IN FACILITY. PT IS CURRENTLY RESTING COMFORTABLY IN ROOM, ASSESSMENTS ARE DOCUMENTED. PT HAS HAD SPOUSE IN ROOM THIS SHIFT, EDUCATION WAS PROVIDED. PLAN OF CARE IS TO CONTINUE TO MONITOR CLOSELY AT THIS TIME.
--- NOTE | 2018-10-25 14:19 | NUR ---
CARINA reviewed chart and spoke with nursing and attending physician. Pt is progressing towards goals for discharge. CARINA discussed with [facility] SNF liaison, who will meet with pt at bedside. SW met with pt at bedside to provide update. Pt agreeable with discharge plan to post-acute. CARINA spoke with pt's , Nico, via phone to provide update. SW is following to assist as needed with discharge planning.
[2018-10-25] MEDS ORDERED: LEVALBUTER0.63 MG/3 INH (15:06)
[2018-10-25] MEDS ORDERED: ALPRAZOLAM 0.50.5 MG PO (15:07)
[2018-10-25] MEDS ORDERED: MUCINEX600 MG PO (15:09)
[2018-10-25] MEDS ORDERED: PREDNISONE 10 M10 MG PO (15:10)
[2018-10-25 15:21] VITALS: BP 119/79
--- NOTE | 2018-10-28 18:11 | HC ---
[facility] [place] [address] CONSULTATION Name: CULLEN BROWN NAHUN Room #: 355-P [facility] IN M.R.#: [id number] Admission: 10/11/18 ������������������ Attend Phys: Elgin Camilo MD Discharge: 10/25/18 ������������������ Date of : 60 Report #: [id number] THIS REPORT FOR: //name// CC: Elgin Hardin REQUESTING PHYSICIAN: Dr. Anders. CHIEF COMPLAINT: COPD. HISTORY OF PRESENT ILLNESS: The patient is a 58-year-old female who presented on the for gselv-nv-eiaawvt hypercapnic respiratory failure. She has had multiple admissions over the last year, her ex- reports approximately 15-20. Additionally, she has had 3 admissions over the last approximately 1 month's time and because of that she had recently had intubation and extubation. She is considered end-stage COPD at this time. Most recently, she did benefit significantly from BiPAP according to the ex-. She has been wearing this overnight last few days and has had some improvement in her overall status. The patient was requesting on Monday to speak about palliative care. According to nursing staff, current has been reluctant to discuss this. He was not present at the time of my interview. The patient currently reports that she is not having significant anxiety, air hunger, pain or any other discomforts at this point in time. She is on 2 liters via nasal cannula. PAST MEDICAL HISTORY: COPD, chronic combined respiratory failure, anxiety, tobacco abuse history, although she has currently quit. SOCIAL HISTORY: Ex- is present, although her spouse, Arnel, was there prior. She was a past smoker, has been quit over the last month. The patient had no significant alcohol use. She is currently DNR, which was recently changed. She is living approximately [place] south of [facility]. ALLERGIES: No known drug allergies. FAMILY HISTORY: Noncontributory. MEDICATIONS: Currently, ibuprofen, Xanax, Pepcid, Solu-Medrol, Xopenex, DuoNeb, Lovenox, morphine, Zosyn. PAST SURGICAL HISTORY: None significant towards her current present condition. REVIEW OF SYSTEMS GENERAL: Denies any fevers or chills currently. HEENT: Denies any visual changes. CARDIOVASCULAR: Denies chest pain or palpitations. She has had this recently, though. RESPIRATORY: Denies current shortness of breath, although significant recurrent [facility] [address] [place] [address] CONSULTATION Name: CULLEN BROWN Room #: 355-P [facility] IN [facility].#: [id number] Admission: 10/11/18 ������������������ Attend Phys: Elgin Camilo MD Discharge: 10/25/18 ������������������ Date of : 60 Report #: [id number] dyspnea noted. Additionally, she reports chronic cough. She has significant wheezing chronically. ABDOMEN: Denies current nausea, vomiting, constipation or diarrhea. PHYSICAL EXAMINATION: VITAL SIGNS: Reviewed. Temperature 36.8; pulse 110, although significantly improved when I was auscultating; respirations 20; blood pressure 112/81; 97% on 2 liters. GENERAL: The patient appears to be alert. She is oriented x 3 currently, although she has a slowness of speech. CARDIOVASCULAR: Regular rate and rhythm without murmur. LUNGS: Clear to auscultation bilaterally. No wheezes, rales or rhonchi. ABDOMEN: Soft, nontender to palpation x 4, positive bowel sounds in all 4 quadrants. RESPIRATORY: She did have diffuse wheezing, end expiratory. LABORATORY DATA: These include a CO2 of 62.5 today. White blood cells 14.5. Creatinine 0.5. ASSESSMENT AND PLAN: 1. Chronic obstructive pulmonary disease with exacerbation. Certainly, you know given her recurrent admissions, it is prudent that she may accept palliative care or a type of hospice care. She appears to be leading towards palliative care. I have discussed the difference between the two with her and her ex-. She is currently DNR status. Additionally, her ex- was pointing out that she has had significant improvement with BiPAP in both respiratory status, but also in her anxiety and this may be worth pursuing if not for prevention of readmission as well. Appears ex- is willing to assist with payment if not currently covered by insurance, although I certainly do think that it could be helpful to have some noninvasive ventilation for home use. Did discuss with primary team. Spent approx 35 min on advanced care planning. 2. Syqzn-vw-dlioion combined respiratory failure. Again, I appreciate both primary team and Pulmonary's input. At this point in time, she appears to be benefiting significantly from use of Xanax and also opiate pain medicine for air hunger. I have written for some long-acting medication in the form of [place] at low dosing to see if this will control her air hunger as well. 3. Anxiety. Again, this is contributing significantly to readmissions as well. I agree with her current Xanax level and believe that she should go home with this dosing. Thank you very much for this consultation. I have communicated this to the [facility] [address] [address] CONSULTATION Name: CULLEN BROWN Room #: 355-P [facility] IN ..#: [id number] Admission: 10/11/18 ������������������ Attend Phys: Elgin Camilo MD Discharge: 10/25/18 ������������������ Date of : 60 Report #: [id number] primary team at this time and will likely be deciding on referral to palliative care as well. ��������������������������������������������� <ELECTRONICALLY SIGNED> ���������������������������������������� By: Vick Lynch DO ��������������������������������������������� 10/28/18 1811 2318 170 Vick Lynch DO /nt
== END 2018-10-25 16:51 | DRG 208 ==
LOC: ER 00:12 → 3W 01:58 → EROBS 01:58 → ICU 01:58 → 3W 10-17 17:08 → ICU 10-17 17:10 → 3W 10-17 17:26
PROVIDERS: Emergency Medicine; Internal Medicine; Internal Medicine Pulmonary Disease; Nurse Practitioner Family; Pediatrics; ADMIT Hospitalist
PROC: 5A1945Z Respiratory Ventilation, 24-96 Consecutive Hours (ICD-10-PCS; principal; 2018-10-11)
PROC: 0BH17EZ Insertion of Endotracheal Airway into Trachea, Via Natural or Artificial Opening (ICD-10-PCS; principal; 2018-10-11)
PROC: 5A09357 Assistance with Respiratory Ventilation, Less than 24 Consecutive Hours, Continuous Positive Airway Pressure (ICD-10-PCS; principal; 2018-10-11)
DX: J96.22 Acute and chronic respiratory failure with hypercapnia (principal); J45.901 Unspecified asthma with (acute) exacerbation; E44.1 Mild protein-calorie malnutrition; Z68.1 Body mass index [BMI] 19.9 or less, adult; R31.9 Hematuria, unspecified; J43.9 Emphysema, unspecified; J96.21 Acute and chronic respiratory failure with hypoxia; F17.210 Nicotine dependence, cigarettes, uncomplicated; F41.1 Generalized anxiety disorder; Z66 Do not resuscitate; Z51.5 Encounter for palliative care; Z79.899 Other long term (current) drug therapy
CPT/HCPCS: 10078; 10879; 27000

== ENCOUNTER 2018-11-06 05:27 | Inpatient (IN) | payer OTHER ==
[~2018-11-06] VITALS: Ht 154.9 cm; Wt 45.4 kg
--- NOTE | ~2018-11-06 | EMS ---
[address] [address] EMS Patient Care Report Name: CULLEN BROWN Room #: PRE MVimalRVimal#: [id number] Admission: Attend Phys: Discharge: Date of : 60 Report #: [id number] THIS REPORT FOR: //name// Report Transmitted: 11/06/2018 05:17 EMS Care Summary [facility] MED-ACT Incident [id number] @ 11/06/2018 04:44 Incident Location [address] [place] [address] Patient CULLEN CORRIGAN Female, 58 Years 1960 Patient Address [address] [place] [address] Patient History Cardiac Arrythmia,Chronic Obstructive Pulmonary Disease (COPD),Emphysema,Anxiety Disorder (Panic Attacks), Patient Allergies No known allergies, Patient Medications Atrovent, Prednisone, Spiriva, Albuterol, Chief Complaint I can't breathe Disposition Transported No Lights/[place] Reason Breathing Problem Transported To [facility] Narrative HISTORY. Per nursing, pt began to feel SOB early this am. Pt was given several [address] [address] EMS Patient Care Report Name: CULLEN BROWN Room #: PRE Wilner.#: [id number] Admission: Attend Phys: Discharge: Date of : 60 Report #: [id number] breathing treatments and her home O2 was increased to 3 lpm. Pt was given Xanax x2. Pt still did not improve and EMS was activated. Upon our arrival pt is sitting with legs crossed on her bed. Pt has a pillow in her lap and is in a modified tripod position in obvious distress. Pt does have a DNR and has gone into respiratory arrest while in the hospital. ASSESSMENT INDICATED IN CHART. Pt showing signs of significant work of breathing. TREATMENT. EMS asked pt is she would like to try a NRB mask instead of increasing her O2 in her NC. Pt nodded yes. NRB applied and pts breathing coached. Pts work of breathing decreased. No accessory muscle use can now be seen in neck or chest. Lung sounds have improved. No additional. Pt is lifted to EMS cot/unit. TRANSPORT. [facility] is destination. [facility] contacted. Information given to staff. VS monitored. Pts HR remains elevated as does her BP. Pt is more relaxed and breathing much more easily. DISPOSITION. Pt is lifted to ED bed. Report and paper work given to nursing. M 1144 clear. Initial Vitals @05:02P: 144,R: 26,BP: 182/107,GCS: 15,SpO2: 99,Revised Trauma: 12,NM Suspected: false @05:15P: 142,R: 24,BP: 183/109,GCS: 15,SpO2: 99,Revised Trauma: 12,NM Suspected: false @05:00P: 142,R: 28,BP: 185/106,Pain: 0/10,GCS: 15,SpO2: 98,Revised Trauma: 12,NM Suspected: false @04:51P: 142,R: 28,BP: 181/109,Pain: 0/10,GCS: 15,Glucose: 127,SpO2: 95,Revised Trauma: 12,NM Suspected: false @05:10P: 146,R: 24,GCS: 15,SpO2: 99,NM Suspected: false Assessments @04:52MENTAL:Person Oriented,Time Oriented,Event Oriented,Place Oriented,SKIN:HEENT:Head/Face: No Abnormalities,Neck/Airway: No Abnormalities,LUNG SOUNDS:General: No Abnormalities,ABDOMEN:General: No Abnormalities,PELVIS//GI:No Abnormalities,EXTREMITIES:Left Arm: No Abnormalities,Right Arm: No Abnormalities,Left Leg: No Abnormalities,Right Leg: No Abnormalities,PULSE:Radial: 2+ Normal,NEURO: Impression Acute Respiratory Distress (Dyspnea) Procedures [facility] [address] [place] [address] EMS Patient Care Report Name: CULLEN BROWN Room #: PRE M.R.#: [id number] Admission: Attend Phys: Discharge: Date of : 60 Report #: [id number] @05:1012-Lead ECGResponse: UnchangedSucceeded@05:42Saline Lock 10cc (18 ga) Site: Antecubital-LeftResponse: UnchangedSucceeded@04:53Oxygen FlowRate: 15 Device: Non Re-breather Mask (NRB) Response: ImprovedSucceeded Timeline 04:43,Call Received 04:43,Psap Call 04:44,Dispatched 04:45,En Route 04:48,On Scene 04:51,At Patient 04:51,BP: 181/109 M,PULSE: 142,RR: 28 R,SPO2: 95 Ox,ETCO2: ,B,PAIN: 0,GCS: 15, 04:53,Oxygen FlowRate: 15 Device: Non Re-breather Mask (NRB) Response: ImprovedSucceeded, 05:00,BP: 185/106 M,PULSE: 142,RR: 28 R,SPO2: 98 Ox,ETCO2: ,BG: ,PAIN: 0,GCS: 15, 05:02,BP: 182/107 M,PULSE: 144,RR: 26 R,SPO2: 99 Ox,ETCO2: ,BG: ,PAIN: ,GCS: 15, 05:10,12-Lead ECG,Response: UnchangedSucceeded, 05:10,BP: / M,PULSE: 146,RR: 24 R,SPO2: 99 Ox,ETCO2: ,BG: ,PAIN: ,GCS: 15, 05:12,Depart Scene 05:15,BP: 183/109 M,PULSE: 142,RR: 24 R,SPO2: 99 Ox,ETCO2: ,BG: ,PAIN: ,GCS: 15, 05:22,At Destination 05:42,Saline Lock 10cc 18 ga Site: Antecubital-Left,Response: UnchangedSucceeded, 05:48,Call Closed Disclaimer v1.1 Copyright 2019 [employer] This EMS Care Summary contains data elements from the applicable legal record (which may be displayed differently). It is designed to provide pertinent information for the following purposes: continuity of care, clinical quality, and state data reporting. The complete legal record is available to ED staff and administrators of the receiving hospital in [employer]'s Patient Tracker. All data is provided "as is."
[~2018-11-06 05:27] MED LIST changes: +ALBUTEROL2.5 MG/0.1; +ALPRAZOLAM 0.50.5 MG PO; +LEVALBUTER0.63 MG/3 INH; +MUCINEX600 MG PO
[2018-11-06 05:28] VITALS: BP 189/113
[2018-11-06 05:51] LABS: HEMATOCRIT 38.9 % (37.0-47.0); HEMOGLOBIN 13.2 gm/dL (12.0-15.0); MCH 34.4 pg (26.0-34.0); MCV 101.2 fL (80.0-100.0); RBC 3.85 mil/uL (4.20-5.00); RDW 13.3 % (10.5-14.5); WBC 9.6 thou/uL (4.0-11.0)
[2018-11-06 05:56] LABS: ANION GAP 7 mmol/L (7-16); BUN 8 mg/dL (7-18); CALCIUM 8.8 mg/dL (8.5-10.1); CHLORIDE 106 mmol/L (98-107); CO2 31 mmol/L (21-32); CREATININE 0.6 mg/dL (0.6-1.0); GLUCOSE 120 mg/dL (74-106); SODIUM 144 mmol/L (136-145)
[2018-11-06 06:05] LABS: TROPONIN-I <0.06 ng/mL (<0.06)
[2018-11-06 06:10] LABS: BE(vivo) -3.4 mmol/L (-2 to +3); PO2 464.8 mmHg (80.0-100.0); sO2 99.8 % (92.0-98.0)
[2018-11-06 06:11] LABS: PCO2 85.3 mmHg (35.0-45.0); pH 7.134 (7.360-7.450)
[2018-11-06 07:43] LABS: BE(vivo) -0.3 mmol/L (-2 to +3); HCO3 29.2 mmol/L (22.0-26.0); PO2 400.7 mmHg (80.0-100.0); sO2 99.7 % (92.0-98.0)
[2018-11-06 07:45] LABS: PCO2 72.5 mmHg (35.0-45.0); pH 7.223 (7.360-7.450)
--- NOTE | 2018-11-06 08:36 | EKG ---
[address] [address] ELECTROCARDIOGRAM REPORT Name: KEVINCULLENSHARMAINE GARNICA Room #: 170-1 ADM IN ..#: [id number] Admission: 11/06/18 Attend Phys: Vijay Anders MD Discharge: Date of : 60 Report #: [id number] THIS REPORT FOR: //name// [facility] ED Test Date: 2018-11-06 Test Time: 05:41:04 Pat Name: CULLEN BROWN Department: Room: 170 Gender: F Automobiles Salesperson: SANTY : 1960 Requested By: Zack Spaulding Order Number: [id number] MD: Bay Cruz Measurements Intervals [place] Rate: 136 P: 86 AK: 140 QRS: 89 QRSD: 119 T: 59 QT: 273 QTc: 411 Interpretive Statements Sinus tachycardia Right atrial abnormality Poor R wave progression Compared to ECG 10/15/2018 20:38:47 Ventricular premature complex(es) no longer present Electronically Signed On 11-06-2018 8:36:06 CDT by Bay Cruz [email or web address] <ELECTRONICALLY SIGNED> By: Bay Cruz MD, [facility] 11/06/18 0836 0541 [id number] Bay Cruz MD, [facility] /EPI
[2018-11-06 09:47] VITALS: BP 124/83
[2018-11-06 10:35] VITALS: BP 132/56
[2018-11-06 15:13] LABS: URINE BILIRUBIN NEGATIVE (Negative); URINE BLOOD 3+ (Negative); URINE CLARITY CLEAR; URINE COLOR YELLOW; URINE GLUCOSE-RANDOM* NEGATIVE (Negative); URINE KETONES NEGATIVE (Negative); URINE LEUKOCYTES-REFLEX 2+ (Negative); URINE NITRITE-REFLEX POSITIVE (Negative); URINE PROTEIN (DIPSTICK) 1+ (Negative); URINE SPECIFIC GRAVITY >= 1.030 (1.005-1.035); URINE UROBILINOGEN 0.2 E.U./dl (0.2-1.0)
[2018-11-06 15:22] LABS: CASTS None Seen /LPF (None Seen); CRYSTALS None Seen /LPF (None Seen); SQUAMOUS None Seen /LPF (0-3); URINE RBC 0-2 Rare /HPF (0-2); URINE WBC-REFLEX >25 Many /HPF (0-5); WBC CLUMPS Packed (None Seen)
[2018-11-06 19:17] VITALS: BP 122/72
[2018-11-07] VITALS (7 sets, daily range): BP systolic 117–133; BP diastolic 68–85
[2018-11-07 06:08] LABS: CREATININE 0.5 mg/dL (0.6-1.0); POTASSIUM 3.9 mmol/L (3.5-5.1)
[2018-11-07 10:10] LABS: BE(vivo) 1.9 mmol/L (-2 to +3); HCO3 25.1 mmol/L (22.0-26.0); PCO2 34.9 mmHg (35.0-45.0); PO2 104.4 mmHg (80.0-100.0); pH 7.475 (7.360-7.450); sO2 98.1 % (92.0-98.0)
[2018-11-08 04:45] VITALS: BP 127/81
[2018-11-08 07:15] VITALS: BP 116/98
[2018-11-08 11:00] VITALS: BP 137/82
[2018-11-08] MEDS ORDERED: PREDNISONE 10 M10 MG PO (12:20)
[2018-11-08 15:50] VITALS: BP 135/84
[2018-11-08 20:13] VITALS: BP 132/63
[2018-11-09 04:22] VITALS: BP 168/99
[2018-11-09 07:50] VITALS: BP 140/75
[2018-11-09] MEDS ORDERED: PREDNISONE 10 M10 MG PO (10:57)
[2018-11-09] MEDS ORDERED: SOLU-MEDRO125 MG/23 IV PUSH (10:57)
== END 2018-11-09 13:55 | DRG 189 ==
LOC: ER 05:27 → EROBS 06:19 → 2N 06:19
PROVIDERS: Emergency Medicine; Internal Medicine; Internal Medicine Pulmonary Disease; Nurse Practitioner; ADMIT Internal Medicine
PROC: 5A09357 Assistance with Respiratory Ventilation, Less than 24 Consecutive Hours, Continuous Positive Airway Pressure (ICD-10-PCS; principal; 2018-11-06)
PROC: 5A09357 Assistance with Respiratory Ventilation, Less than 24 Consecutive Hours, Continuous Positive Airway Pressure (ICD-10-PCS; 2018-11-07)
PROC: 5A09357 Assistance with Respiratory Ventilation, Less than 24 Consecutive Hours, Continuous Positive Airway Pressure (ICD-10-PCS; 2018-11-08)
PROC: 5A09357 Assistance with Respiratory Ventilation, Less than 24 Consecutive Hours, Continuous Positive Airway Pressure (ICD-10-PCS; 2018-11-09)
DX: J96.21 Acute and chronic respiratory failure with hypoxia (principal); E44.0 Moderate protein-calorie malnutrition; N39.0 Urinary tract infection, site not specified; J45.901 Unspecified asthma with (acute) exacerbation; Z68.1 Body mass index [BMI] 19.9 or less, adult; J96.22 Acute and chronic respiratory failure with hypercapnia; J43.9 Emphysema, unspecified; G47.33 Obstructive sleep apnea (adult) (pediatric); K21.9 Gastro-esophageal reflux disease without esophagitis; F41.9 Anxiety disorder, unspecified; F17.210 Nicotine dependence, cigarettes, uncomplicated; D72.1 Eosinophilia; Z79.52 Long term (current) use of systemic steroids; Z99.81 Dependence on supplemental oxygen; Z66 Do not resuscitate
CPT/HCPCS: 10081

== ENCOUNTER → 2019-01-28 | Outpatient (CLI) | payer OTHER ==
[~2019-01-28] MED LIST changes: +CARDIZEM30 MG PO; +IPRATROPIU0.2 MG/1 M INH; +NYSTATIN100000 UNI SW&SWALLOW; +PEPCID20 MG PO; +SOLU-MEDRO125 MG/23 IV PUSH
== END ==
LOC: RAD 12:39
DX: J44.9 Chronic obstructive pulmonary disease, unspecified (principal); J45.50 Severe persistent asthma, uncomplicated

== ENCOUNTER → 2019-01-30 | Outpatient (CLI) | payer OTHER ==
--- NOTE | 2019-01-30 15:31 | 2DMMODE ---
[facility] [address] [address] 2 D/M-MODE ECHOCARDIOGRAM Name: CULLEN BROWN Room #: REG [facility]#: [id number] Admission: 01/30/19 Attend Phys: Varsha León Discharge: Date of : 60 Report #: [id number] THIS REPORT FOR: //name// APPROVED REPORT Study performed: 01/30/2019 14:06:52 EXAM: Comprehensive 2D, Doppler, and color-flow Echocardiogram Patient Location: Out-Patient Status: routine BSA: 1.38 HR: 92 bpm BP: 164/72 mmHg Rhythm: NSR/ Bigimeny PVCs Other Information Technically limited study due to COPD and thin body habitus. Indications Abnormal ECG 2D Dimensions RVDd: 29.71 mm IVSd: 8.37 (7-11mm) LVOT Diam: 18.03 (18-24mm) LVDd: 36.82 mm PWd: 8.58 (7-11mm) LVDs: 26.27 (25-40mm) Aortic Root: 33.25 mm Volumes Left Atrial Volume (Systole) Single Plane 4CH: 12.05 mL Single Plane 2CH: 24.18 mL LA ESV Index: 18.00 mL/m2 Aortic Valve AoV Peak Fermin.: 1.58 m/s AO Peak Gr.: 9.95 mmHg LVOT Max P.47 mmHg LVOT Max V: 1.27 m/s MACARIO Vmax: 2.06 cm2 Mitral Valve E/A Ratio: 1.0 MV Decel. Time: 216.91 ms [facility] [address] [place] [address] 2 D/M-MODE ECHOCARDIOGRAM Name: CULLEN BROWN Room #: REG [facility]#: [id number] Admission: 01/30/19 Attend Phys: Varsha León Discharge: Date of : 60 Report #: [id number] E Max Fermin.: 0.89 m/s MV A Fermin.: 0.89 m/s MV PHT: 62.90 ms IVRT: 57.67 ms Pulmonary Valve PV Peak Fermin.: 1.09 m/s PV Peak Gr.: 4.77 mmHg Tricuspid Valve TR Peak Fermin.: 2.23 m/s RAP Estimate: 5.00 mmHg TR Peak Gr.: 19.88 mmHg PA Pressure: 25.00 mmHg Left Ventricle The left ventricle is normal size. There is normal left ventricular wall thickness. The left ventricular systolic function is normal. The left ventricular ejection fraction is within the normal range. LVEF is 60%. Diastolic function is difficult to determine due to arrhythmia. Right Ventricle The right ventricle is normal size. The right ventricular systolic function is normal. Atria The left atrium size is normal. The right atrium size is normal. Aortic Valve Aortic valve leaflets are mildly thickened. No aortic regurgitation is present. There is no aortic valvular stenosis. Mitral Valve The mitral valve is normal in structure. Mild mitral regurgitation. No evidence of mitral valve stenosis. Tricuspid Valve The tricuspid valve is normal in structure. Trace tricuspid regurgitation. Estimated PAP is 25mmHg. Pulmonic Valve Pulmonic valve is not well visualized. Trace pulmonic regurgitation. Great Vessels The aortic root is normal in size. Ascending aorta is not well [facility] [address] [place] [address] 2 D/M-MODE ECHOCARDIOGRAM Name: CULLEN BROWN Room #: GENE Amado#: [id number] Admission: 01/30/19 Attend Phys: Varsha León Discharge: Date of : 60 Report #: [id number] visualized. IVC is normal in size and collapses >50% with inspiration. Pericardium There is no pericardial effusion. <Conclusion> The left ventricle is normal size. LVEF is 60%. Aortic valve leaflets are mildly thickened. The mitral valve is normal in structure. Mild mitral regurgitation. The tricuspid valve is normal in structure. Trace tricuspid regurgitation. Estimated PAP is 25mmHg. Pulmonic valve is not well visualized. Trace pulmonic regurgitation. There is no pericardial effusion. <ELECTRONICALLY SIGNED> By: Jamarcus Taylor MD 01/30/19 1530 153 153 Jamarcus Taylor MD /INF
== END ==
LOC: CV 13:31
DX: I34.0 Nonrheumatic mitral (valve) insufficiency (principal)

== ENCOUNTER 2019-02-03 03:11 | Emergency (ER) | payer OTHER ==
[~2019-02-03] VITALS: Ht 154.9 cm; Wt 50.4 kg
[~2019-02-03 03:11] MED LIST changes: -CARDIZEM30 MG PO; -IPRATROPIU0.2 MG/1 M INH; -NYSTATIN100000 UNI SW&SWALLOW; -PEPCID20 MG PO
[2019-02-03 03:50] LABS: ABSOLUTE NEUTROPHILS 4.4 thou/uL (1.4-8.2); EOSINOPHILS 3.1 % (0.0-3.0); HEMOGLOBIN 13.8 gm/dL (12.0-15.0); LYMPHOCYTES 26.5 % (24.0-44.0); MCH 33.1 pg (26.0-34.0); MCHC 33.6 g/dL (28.0-37.0); MCV 98.6 fL (80.0-100.0); MONOCYTES 8.8 % (1.0-8.0); PLATELET COUNT 256 thou/uL (150-400); POLYS 60.6 % (36.0-66.0); RBC 4.16 mil/uL (4.20-5.00); RDW 12.9 % (10.5-14.5); WBC 7.3 thou/uL (4.0-11.0)
[2019-02-03 03:58] LABS: ANION GAP 9 mmol/L (7-16); BUN 17 mg/dL (7-18); CALCIUM 9.5 mg/dL (8.5-10.1); CHLORIDE 104 mmol/L (98-107); CO2 29 mmol/L (21-32); CREATININE 0.8 mg/dL (0.6-1.0); GLUCOSE 90 mg/dL (74-106); POTASSIUM 4.2 mmol/L (3.5-5.1); SODIUM 142 mmol/L (136-145)
[2019-02-03 04:07] LABS: TROPONIN-I <0.06 ng/mL (<0.06)
[2019-02-03] MEDS ORDERED: PREDNISONE 10 M10 MG PO ×2 (05:04)
[2019-02-03 05:20] VITALS: BP 165/91
--- NOTE | 2019-02-03 10:24 | EKG ---
[place] [address] [place] [address] ELECTROCARDIOGRAM REPORT Name: CULLEN BROWN Room #: [facility]#: [id number] Admission: 02/03/19 Attend Phys: Discharge: 02/03/19 Date of : 60 Report #: [id number] THIS REPORT FOR: //name// [facility] ED Test Date: 2019-02-03 Test Time: 03:23:14 Pat Name: CULLEN BROWN Department: Room: Gender: F Check Out Clerk: LULI : 1960 Requested By: Zack Spaulding Order Number: [id number] MD: Immanuel Healy Measurements Intervals [place] Rate: 91 P: 83 HI: 141 QRS: 78 QRSD: 87 T: 59 QT: 334 QTc: 411 Interpretive Statements Sinus rhythm Multiform ventricular premature complexes Biatrial enlargement Compared to ECG 11/06/2018 05:41:04 Ventricular premature complex(es) now present Sinus tachycardia no longer present Poor R-wave progression no longer present Electronically Signed On 02-03-2019 10:24:00 DRAWING KILN OPERATOR by Immanuel Healy [email or web address] <ELECTRONICALLY SIGNED> By: Immanuel Healy MD 02/03/19 1024 032 2 Immanuel Healy MD /ALEENA
== END 2019-02-03 05:15 | disposition home or self-care (01) ==
LOC: ER 03:11
PROVIDERS: Emergency Medicine
DX: J44.9 Chronic obstructive pulmonary disease, unspecified (principal); K21.9 Gastro-esophageal reflux disease without esophagitis; F41.9 Anxiety disorder, unspecified; Z87.891 Personal history of nicotine dependence

== ENCOUNTER 2019-02-05 06:01 | Inpatient (IN) | payer OTHER ==
[2019-02-05] VITALS (7 sets, daily range): BP systolic 110–186; BP diastolic 61–108
[~2019-02-05] VITALS: Ht 154.9 cm; Wt 49.1 kg
--- NOTE | ~2019-02-05 | H ---
[facility] [place] [address] HISTORY AND PHYSICAL Name: CULLEN BROWN Room #: 170-11 ADM IN M.R.#: [id number] Admission: 02/05/19 Attend Phys: Nazia Bean MD Discharge: Date of : 60 Report #: [id number] THIS REPORT FOR: //name// CC: Nazia Maddox [place] DATE OF SERVICE: 02/05/2019 INTERACTIVE WEB DEVELOPER: Dr. Herring. CHIEF COMPLAINT: Trouble breathing since last Monday when the patient was here in the Emergency Room. HISTORY OF PRESENT ILLNESS: The patient is a very pleasant 58-year-old female with chronic respiratory failure and she follows with Dr. Herring on an outpatient basis and is on Trelegy at nighttime and chronic BiPAP use. The patient informs me that just recently in 10/2018, she started having a taper of the prednisone and when it came to 10 mg daily, her breathing started getting worse again. The patient was seen here in the Emergency Room on 02/03/2019 for the shortness of breath and also with a panic attack while she was using nebulizer around 2300. The patient started having again shortness of breath 4 hours later at 2:00 a.m. and so came to the hospital. The patient has oxygen in Trelegy and prednisone dependent COPD and chronic respiratory failure. The patient was seen by Dr. Zack Charles at that time because of shortness of breath for 6 hours along with feeling of a pulled muscle from a week ago where she started having some discomfort. The patient was given Solu-Medrol. She was 98% on her baseline oxygen and her blood pressure and heart rates were pretty well controlled except mild tachycardia and the chest x-ray did not show any abnormality and the patient was advised to follow up with Dr. Herring in 2-3 days. The patient was seen by Dr. Burton in the office and the prednisone was increased to 15 mg daily. However, she comes back today because of the shortness of breath getting progressively worse since 2:00 this morning. The patient feels very uncomfortable and she has been using her Trelegy, but Trelegy settings have been an issue and so she has been using BiPAP and she informs me that she has been having some bloating and GI issues, but otherwise no other problems. She denies any exposure to infection. She has not had any fever, shaking chills or night sweats associated with this shortness of breath. She denies any pleuritic chest pain associated with it. Denies any palpitations. She has not had any nausea, vomiting, diarrhea or abdominal pain, just the bloating because of the BiPAP use at night is the main problem. Other than that, she does not have any abdominal pain. She does have severe anxiety problems and did take her Ativan at 2:00, but it did not help her with the breathing. She is on 0.25 mg of Ativan at home. The patient informs me that she quit smoking in 09/2018 and does not have any secondhand smoke exposure either. She was recently admitted on 11/06/2018 and was intubated and had a prolonged hospital stay. [address] [address] HISTORY AND PHYSICAL Name: RACHEL BROWNJw GARNICA Room #: 170-11 ADM IN M.R.#: [id number] Admission: 02/05/19 Attend Phys: Nazia Bean MD Discharge: Date of : 60 Report #: [id number] PAST MEDICAL HISTORY: Significant for: 1. Chronic respiratory failure with hypercapnia and hypoxemia. 2. Oxygen and prednisone-dependent COPD. 3. Anxiety disorder, panic attacks. 4. Tobacco dependence in early remission. 5. Gastroesophageal reflux disease. 6. Hyperglycemia associated with steroid use. PAST SURGICAL HISTORY: The patient denied any surgical history. ALLERGIES: The patient has no known drug allergies. FAMILY HISTORY: Mother had heart problems and father had COPD and he of pneumonia. Both parents are . SOCIAL HISTORY: She informs me that she quit smoking in 09/2018 and denies any alcohol or recreational drug use. The patient uses [facility] on [address] [place] [address] in [place], [place]. CURRENT MEDICATIONS: 1. Tiotropium or Spiriva HandiHaler 1 daily. 2. Levalbuterol 0.63 q. 4 hours. 3. Tylenol q.i.d. p.r.n. 4. Alprazolam 0.25 mg p.o. q. 6 hours p.r.n. for anxiety. 5. Breo Ellipta 200/25 mcg daily. 6. Guaifenesin 1200 mg p.o. b.i.d. 7. Prednisone 15 mg daily. 8. Zantac or Pepcid 20 mg daily. Also reviewed the discharge medications from 11/09/2018 and it appears that the patient was discharged to go home on Breo Ellipta, Tiotropium, acetaminophen, levalbuterol, alprazolam, guaifenesin and prednisone. At that time, the patient was discharged to [facility]. The patient also had a questionable urinary tract infection; however, remained no growth to date. REVIEW OF SYSTEMS: Ten-point review of system was done and the patient denies any dizziness, lightheadedness, nausea, vomiting, diarrhea, neck pain, sore throat, sinus drainage. Denies any chest pain, chest pressure or pleuritic component to any discomfort. Denies any orthopnea, paroxysmal nocturnal dyspnea or leg edema. She also denies any hemoptysis and denies any nausea, vomiting, diarrhea, hematochezia, melena or constipation. Denies any dysuria, hematuria, frequency or urgency of urination and denies any weakness or numbness of any part of the body. Denies any recent fall or trauma or any musculoskeletal discomfort. PHYSICAL EXAMINATION: [facility] [address] [place] [address] HISTORY AND PHYSICAL Name: CULLEN BROWNVONNE Room #: 17011 ADM IN ..#: [id number] Admission: 02/05/19 Attend Phys: Nazia Bean MD Discharge: Date of : 60 Report #: [id number] VITAL SIGNS: Temperature, patient is afebrile; heart rate 117; respirations 26; blood pressure 186/108; pulse oximetry 95% on 3 liters of oxygen when she presented to the Emergency Room. At the time of examination, however, the patient had a heart rate 112, respiration 18, blood pressure 140/77, pulse oximetry 96% on 3 liters of oxygen by nasal cannula, body mass index of 21 kilograms per square meter. GENERAL: Lean and thin, alert and oriented to time, place and person, very pleasant female who is sitting upright with a nasal cannula and appears comfortable with mild tachypnea noted, but no distress. No accessory muscle of respiration is being used and the patient is able to talk in full sentences. HEENT: Normocephalic, atraumatic. Pupils are equally round and reactive to light. Conjunctivae are clear. Sclerae nonicteric. Oropharynx is clear. Mucous membranes are moist. NECK: Supple. No thrush noted in the oropharynx and the patient has dentures noted. HEART: S1, S2, regular. Mild tachycardia noted. No S3 or S4 noted. LUNGS: Prolonged expiratory phase, but otherwise clear to auscultation without any wheezes or crackles noted bilaterally, symmetrical chest expansion present. ABDOMEN: Soft, nontender, nondistended, normal active bowel sounds. EXTREMITIES: No edema in both lower extremities. NEUROLOGIC: Completely nonfocal. LABORATORY DATA: 1. The patient has a venous blood gas drawn, which is pH 7.267, pCO2 of 54, interestingly pO2 was 80.5 and carboxyhemoglobin is 1 and methemoglobin is 0.5. Lactate is 1.58 on nasal cannula 1 liter per minute of oxygen. 2. Hematology indicates WBC 9.5, hemoglobin 14.6, hematocrit 43.0, platelet count 261. Differential is significant for segmented neutrophil elevated at 69.8% and there is some monocytosis and eosinophilia mild noted. Coagulation panel indicates PT 10.1, INR 1.0, PTT 22.9. 3. Chemistries indicate sodium 140, potassium 3.9, chloride 104, bicarbonate 30, anion gap 6, BUN 15, creatinine 0.8, GFR 74, glucose 107, calcium 8.8, magnesium 2.0, total bilirubin 0.3, AST 17, ALT 21, alkaline phosphatase 85. Troponin I is less than 0.06. BNP 74, total protein 7.1, albumin 3.9. 4. Electrocardiogram indicates sinus tachycardia with a heart rate of 103 with ventricular bigeminy, biatrial enlargement and abnormal R-wave progression with late transition noted and chest x-ray portable indicates no acute pneumonia or consolidation or abnormality, no emphysematous changes in both upper lungs needed and heart size is normal without any evidence of CHF. Urinalysis has been ordered and it is pending at the time of dictation. ASSESSMENT AND PLAN: 1. Chronic respiratory failure with mild acute exacerbation. 2. End-stage lung disease with severe chronic obstructive pulmonary disease with mild exacerbation. 3. Hyper IgE, chronically elevated. [facility] [address] [place] [address] HISTORY AND PHYSICAL Name: CULLEN BROWN Room #: 170-11 ADM IN M.R.#: [id number] Admission: 02/05/19 Attend Phys: Nazia Bean MD Discharge: Date of : 60 Report #: [id number] 4. Gastroesophageal reflux disease. 5. Anxiety with panic attacks. 6. The patient is a full code and GI prophylaxis with Pepcid and DVT prophylaxis with heparin. PLAN: 1. The patient is being admitted to Critical Care telemetry and Pulmonary consult has been requested for acute on chronic hypercapnic respiratory failure. The patient is currently on home oxygen requirement and has not had any hypoxemia. We will go ahead and start Trelegy while she is here and Pulmonary consult has been placed. We will go ahead and resume Breo Ellipta at home dose and we will give IV Solu-Medrol as the patient has had exacerbation on 10 mg or 15 mg oral prednisone at home. We will go ahead and do albuterol breathing treatment q.i.d. scheduled with q. 4 hours p.r.n. Await pulmonary consultation and consider repeating blood gas after Trelegy has been started. 2. Asthma/end-stage lung disease. Resume home medications. Emphasized the patient for smoking cessation. We will go ahead and check for respiratory viral panel as strep pneumo antigen and legionella antigen. The patient is up to day for flu vaccine and will do Rocephin for community-acquired pneumonia/bronchitis coverage. 3. Pepcid for GI prophylaxis and heparin for DVT prophylaxis. For anxiety, we will go ahead and resume her home dose of Ativan or Xanax that she takes at home. 4. The patient has been evaluated by Dr. Lynch and we will go ahead and admit the patient to critical care tele and will discuss with the patient about code status once she is more comfortable and less anxious and we will go ahead and look for metabolic causes also contributing to her acidosis and rest lactic acidosis is not the cause and so it looks like respiratory acidosis is ____ but the pH is 7.2 with a pCO2 being only mildly elevated. We will discuss with Dr. Herring and more than 30 minutes were spent in direct patient care. By: [id number] Nazia Bean MD /nt
[2019-02-05 06:29] LABS: ABSOLUTE NEUTROPHILS 6.7 thou/uL (1.4-8.2); EOSINOPHILS 3.8 % (0.0-3.0); HEMOGLOBIN 14.6 gm/dL (12.0-15.0); LYMPHOCYTES 17.1 % (24.0-44.0); MCH 33.4 pg (26.0-34.0); MCHC 33.8 g/dL (28.0-37.0); MCV 98.8 fL (80.0-100.0); MONOCYTES 8.3 % (1.0-8.0); PLATELET COUNT 261 thou/uL (150-400); POLYS 69.8 % (36.0-66.0); RBC 4.36 mil/uL (4.20-5.00); RDW 12.7 % (10.5-14.5); WBC 9.5 thou/uL (4.0-11.0)
[2019-02-05 06:34] LABS: CALCIUM 8.8 mg/dL (8.5-10.1); CREATININE 0.8 mg/dL (0.6-1.0); POTASSIUM 3.9 mmol/L (3.5-5.1)
[2019-02-05 06:39] LABS: BE(vivo) -3.6 mmol/L (-2 to +3); HCO3 24.1 mmol/L (22.0-26.0); PO2 VENOUS 80.5 mmHg (35.0-45.0)
[2019-02-05 06:41] LABS: ALBUMIN 3.9 g/dL (3.4-5.0); TOTAL BILIRUBIN 0.3 mg/dL (<0.1-1.0); TOTAL PROTEIN 7.1 g/dL (6.4-8.2)
[2019-02-05 07:05] LABS: TROPONIN-I <0.06 ng/mL (<0.06)
[2019-02-05 07:07] LABS: PROTIME 10.1 Seconds (9.3-11.4)
[2019-02-05 07:14] LABS: APTT 22.9 Seconds (24.5-32.8)
--- NOTE | 2019-02-05 17:43 | NUR ---
PATIENT ARRIVED FROM ED VIA STRECHER, ALERT AND ORIENTED X4. FAMILY AT BEDSIDE. ST ON THE MONITOR, AND VSS. ADMISSION COMPLETED AN POC INITIATED. AND WILL CONTINUE TO MONITOR PATIENT.
--- NOTE | 2019-02-05 19:19 | EKG ---
[address] [place] [address] ELECTROCARDIOGRAM REPORT Name: KEVINCULLEN NAHUN Room #: 206- ADM IN M.R.#: [id number] Admission: 02/05/19 Attend Phys: Nazia Bean MD Discharge: Date of : 60 Report #: [id number] THIS REPORT FOR: //name// [facility] ED Test Date: 2019-02-05 Test Time: 06:27:11 Pat Name: CULLEN BROWN Department: Room: 206 Gender: F Personal Caregiver: haley : 1960 Requested By: Randall Espinosa Order Number: [id number] MD: Bay Cruz Measurements Intervals [place] Rate: 103 P: 88 [place]: 146 QRS: 85 QRSD: 96 T: 66 QT: 352 QTc: 461 Interpretive Statements Sinus tachycardia Ventricular bigeminy Right atrial abnormality Low voltage, extremity leads Abnormal R-wave progression, late transition Compared to ECG 02/03/2019 03:23:14 no significant change was found Electronically Signed On 02-05-2019 19:19:15 SENIOR HARDWARE ENGINEER by Bay Cruz [email or web address] <ELECTRONICALLY SIGNED> By: Bay Cruz MD, FACC 02/05/19 1919 6 6 Bay Cruz MD, [facility] /EPI
[2019-02-06] VITALS (7 sets, daily range): BP systolic 142–176; BP diastolic 78–101
[2019-02-06 04:44] LABS: CALCIUM 8.9 mg/dL (8.5-10.1); CREATININE 0.7 mg/dL (0.6-1.0); PHOSPHORUS 3.6 mg/dL (2.5-4.9); POTASSIUM 4.1 mmol/L (3.5-5.1)
[2019-02-06 05:00] LABS: HEMATOCRIT 40.2 % (37.0-47.0); HEMOGLOBIN 13.4 gm/dL (12.0-15.0); MCH 33.4 pg (26.0-34.0); MCHC 33.4 g/dL (28.0-37.0); MCV 100.2 fL (80.0-100.0); RBC 4.02 mil/uL (4.20-5.00); RDW 12.6 % (10.5-14.5); WBC 9.9 thou/uL (4.0-11.0)
[2019-02-06 05:34] LABS: MAGNESIUM 1.9 mg/dL (1.8-2.4)
--- NOTE | 2019-02-06 17:03 | NUR ---
ASSUMED CARE OF PT AT SHIFT CHANGE. ASSESSMENTS CHARTED. MEDS GIVEN PER MAY. VSS. INCREASED HR WITH ACTIVITY. PT ON 2L NC, ON BIPAP HS. AT BEDSIDE. NO C/O PAIN OR SOA. MAY DC TOMORROW. WILL CONTINUE TO MONITOR AND FOLLOW POC.
--- NOTE | 2019-02-07 04:19 | NUR ---
1900, PT ALERT AND ORIENTED. PT REPORTS BEING ANXIOUS. ATIVAN X1 GIVEN. C/O SOB, PT ON RA , BUT SOB AND TIGHTNESS ALLEVIATED BY BREATHING TREATMENT. ON TRILOGY MACHINE OVERNIGHT. O2 SATS MONITORED. PT DENIES ANY NAUSEA, VOMITING OR DIARRHEA. NO CHEST PAIN. WILL CONTINUE WITH POC
[2019-02-07 05:12] LABS: HEMATOCRIT 35.9 % (37.0-47.0); HEMOGLOBIN 12.1 gm/dL (12.0-15.0); MCH 33.4 pg (26.0-34.0); MCHC 33.8 g/dL (28.0-37.0); MCV 98.8 fL (80.0-100.0); RBC 3.63 mil/uL (4.20-5.00); RDW 12.9 % (10.5-14.5); WBC 11.5 thou/uL (4.0-11.0)
[2019-02-07 05:15] VITALS: BP 140/81
[2019-02-07 05:36] LABS: URINE BILIRUBIN NEGATIVE (Negative); URINE BLOOD TRACE (Negative); URINE CLARITY CLEAR; URINE COLOR YELLOW; URINE GLUCOSE-RANDOM* NEGATIVE (Negative); URINE KETONES NEGATIVE (Negative); URINE LEUKOCYTES-REFLEX NEGATIVE (Negative); URINE NITRITE-REFLEX NEGATIVE (Negative); URINE PROTEIN (DIPSTICK) NEGATIVE (Negative); URINE UROBILINOGEN 0.2 E.U./dl (0.2-1.0)
[2019-02-07 05:40] LABS: CALCIUM 9.4 mg/dL (8.5-10.1); CREATININE 0.7 mg/dL (0.6-1.0); PHOSPHORUS 3.7 mg/dL (2.5-4.9)
[2019-02-07 07:32] VITALS: BP 140/72
[2019-02-07] MEDS ORDERED: IPRATROPIU0.2 MG/1 M INH ×2 (10:22)
[2019-02-07] MEDS ORDERED: NYSTATIN100000 UNI SW&SWALLOW ×2 (10:23)
[2019-02-07] MEDS ORDERED: LEVALBUTER0.63 MG/3 INH ×2 (10:24)
[2019-02-07] MEDS ORDERED: CARDIZEM30 MG PO ×2 (10:25)
[2019-02-07] MEDS ORDERED: PEPCID20 MG PO ×2 (10:26)
[2019-02-07] MEDS ORDERED: PREDNISONE 20 M20 M1 PO ×2 (10:27)
--- NOTE | 2019-02-07 10:37 | NUR ---
met with patient who resides at home with spouse. All needs on one level. Patient has home oxygen and trilogy via [facility]. [facility] serviced triology last evening with new settings. Patient to dc home today with no needs. She denies needs for home health care. No further needs
[2019-02-07 11:17] VITALS: BP 140/72
--- NOTE | 2019-02-07 11:25 | NUR ---
RECEIVED PT'S CARE AROUND 0720; PT. AOX4; DURING ASSESSMENT NO C/O PAIN; ST. NOT FEELING WEAK; AM MEDICATION GIVEN; EDUCATED ABOUT FALL PRECAUTIONS; ST. UNDERSTANDING; AROUND 1000 PER PHYSICIAN ORDER D/C TO HOME; ANTIBIOTIC GIVEN AT 1100; D/C PAPERWORK DONE; RX GIVEN TOGETHER WITH INFORMATION; ASSESSMENT CHARGED; FOLLOW POC; D/C AT HOME;
[2019-02-07 11:40] VITALS: BP 143/88
== END 2019-02-07 12:30 | disposition home or self-care (01) | DRG 189 ==
LOC: ER 06:01 → 2N 09:38 → EROBS 09:38 → 2N 13:08 → ENTRNSPT 02-07 12:11 → EDTRNSPTSTS 02-07 12:13 → 2N 02-07 12:30
PROVIDERS: Emergency Medicine; ADMIT Internal Medicine
PROC: 5A09357 Assistance with Respiratory Ventilation, Less than 24 Consecutive Hours, Continuous Positive Airway Pressure (ICD-10-PCS; principal; 2019-02-05)
PROC: 5A09357 Assistance with Respiratory Ventilation, Less than 24 Consecutive Hours, Continuous Positive Airway Pressure (ICD-10-PCS; 2019-02-06)
DX: J96.21 Acute and chronic respiratory failure with hypoxia (principal); I44.2 Atrioventricular block, complete; J43.9 Emphysema, unspecified; G47.33 Obstructive sleep apnea (adult) (pediatric); K21.9 Gastro-esophageal reflux disease without esophagitis; F41.9 Anxiety disorder, unspecified; R00.0 Tachycardia, unspecified; D82.4 Hyperimmunoglobulin E [IgE] syndrome; F41.0 Panic disorder [episodic paroxysmal anxiety]; J45.909 Unspecified asthma, uncomplicated; J96.22 Acute and chronic respiratory failure with hypercapnia; I10 Essential (primary) hypertension; Z87.891 Personal history of nicotine dependence; Z99.81 Dependence on supplemental oxygen; Z82.49 Family history of ischemic heart disease and other diseases of the circulatory system; Z83.6 Family history of other diseases of the respiratory system
CPT/HCPCS: 10081

== ENCOUNTER 2019-04-10 07:30 | Emergency (ER) | payer OTHER ==
[~2019-04-10] VITALS: Ht 154.9 cm; Wt 49.9 kg
[~2019-04-10 07:30] MED LIST changes: +CARDIZEM30 MG PO; +IPRATROPIU0.2 MG/1 M INH; +NYSTATIN100000 UNI SW&SWALLOW; +PEPCID20 MG PO
[2019-04-10] MEDS ORDERED: DESYREL150 MG PO (08:04)
[2019-04-10 11:15] VITALS: BP 171/90
--- NOTE | 2019-04-11 17:17 | EKG ---
[place] [address] [facility] [address] [place] [address] ELECTROCARDIOGRAM REPORT Name: KEVINCULLEN NAHUN Room #: DEP [facility]#: [id number] Admission: 04/10/19 Attend Phys: Discharge: 04/10/19 Date of : 60 Report #: [id number] THIS REPORT FOR: //name// [facility] ED Test Date: 2019-04-10 Test Time: 08:44:55 Pat Name: CULLEN BROWN Department: Room: Gender: F Wardrobe Specialty Worker: [facility] : 1960 Requested By: Zack Spaulding Order Number: [id number] MD: Valeriy Clark Measurements Intervals [place] Rate: 97 P: 89 DE: 147 QRS: 73 QRSD: 85 T: 73 QT: 364 QTc: 463 Interpretive Statements Sinus rhythm Ventricular bigeminy Biatrial enlargement Compared to ECG 02/05/2019 06:27:11 Electronically Signed On 04-11-2019 17:16:51 ASPARAGUS BUNCHER by Valeriy Clark [email or web address] <ELECTRONICALLY SIGNED> By: Valeriy Clark MD 04/11/19 1716 3 3 Valeriy Clark MD /ALEENA
== END 2019-04-10 11:15 | disposition home or self-care (01) ==
LOC: ER 07:30
DX: J43.9 Emphysema, unspecified (principal); R06.00 Dyspnea, unspecified; K21.9 Gastro-esophageal reflux disease without esophagitis; F41.9 Anxiety disorder, unspecified; Z87.891 Personal history of nicotine dependence

== ENCOUNTER → 2020-01-16 | Outpatient (CLI) | payer OTHER ==
[~2020-01-16] MED LIST changes: +DESYREL150 MG PO
== END ==
LOC: CAT 12:07
PROVIDERS: ATTEND Pediatrics
DX: Z12.2 Encounter for screening for malignant neoplasm of respiratory organs (principal); I70.0 Atherosclerosis of aorta; I25.10 Atherosclerotic heart disease of native coronary artery without angina pectoris; Z87.891 Personal history of nicotine dependence

== ENCOUNTER 2020-03-28 07:07 | Emergency (ER) | payer OTHER ==
[~2020-03-28] VITALS: Ht 154.9 cm; Wt 56.7 kg
[2020-03-28] MEDS ORDERED: IBU600 MG PO (08:31)
[2020-03-28] MEDS ORDERED: NORCO 10-325 T1 EACH PO ×2 (08:31→10:00)
[2020-03-28 08:34] VITALS: BP 156/81
== END 2020-03-28 08:43 | disposition home or self-care (01) ==
LOC: ER 07:07
DX: M54.42 Lumbago with sciatica, left side (principal); K21.9 Gastro-esophageal reflux disease without esophagitis; Z87.891 Personal history of nicotine dependence; Z79.899 Other long term (current) drug therapy

== ENCOUNTER → 2020-09-15 | Outpatient (CLI) | payer OTHER ==
[~2020-09-15] MED LIST changes: +IBU600 MG PO; +NORCO 10-325 T1 EACH PO
== END ==
LOC: SJCVCIMAG 07:47
PROVIDERS: ATTEND Internal Medicine
DX: I34.0 Nonrheumatic mitral (valve) insufficiency (principal); R00.0 Tachycardia, unspecified; I49.3 Ventricular premature depolarization; R07.9 Chest pain, unspecified; R00.2 Palpitations; J96.11 Chronic respiratory failure with hypoxia; J96.12 Chronic respiratory failure with hypercapnia; J44.9 Chronic obstructive pulmonary disease, unspecified; F10.10 Alcohol abuse, uncomplicated; Z79.899 Other long term (current) drug therapy; Z87.891 Personal history of nicotine dependence

== ENCOUNTER → 2020-09-21 | Outpatient (CLI) | payer OTHER | LOC: CAT | PROVIDERS: ATTEND Pediatrics | DX: J43.1 Panlobular emphysema (principal); J96.11 Chronic respiratory failure with hypoxia; J96.12 Chronic respiratory failure with hypercapnia; J44.9 Chronic obstructive pulmonary disease, unspecified; R91.8 Other nonspecific abnormal finding of lung field ==

== ENCOUNTER 2021-05-01 06:03 | Inpatient (IN) | payer OTHER ==
[~2021-05-01] VITALS: Ht 162.6 cm; Wt 55.8 kg
[2021-05-01 06:05] VITALS: BP 118/84
[2021-05-01 06:05] LABS: BE(vivo) 0.5 mmol/L (-2 to +3); HCO3 25.2 mmol/L (22.0-26.0); PCO2 40.9 mmHg (35.0-45.0); PO2 202.3 mmHg (80.0-100.0); pH 7.407 (7.360-7.450); sO2 99.4 % (92.0-98.0)
[2021-05-01 06:39] LABS: ABSOLUTE NEUTROPHILS 8.1 thou/uL (1.4-8.2); BASOPHILS 0.3 % (0.0-2.0); HEMATOCRIT 45.2 % (37.0-47.0); HEMOGLOBIN 15.8 gm/dL (12.0-15.0); LYMPHOCYTES 24.2 % (24.0-44.0); MCH 33.8 pg (26.0-34.0); MCHC 34.9 g/dL (28.0-37.0); MCV 96.8 fL (80.0-100.0); MONOCYTES 7.5 % (1.0-8.0); PLATELET COUNT 299 thou/uL (150-400); RBC 4.67 mil/uL (4.20-5.00); RDW 12.5 % (10.5-14.5); WBC 11.9 thou/uL (4.0-11.0)
[2021-05-01 06:40] LABS: CALCIUM 9.6 mg/dL (8.5-10.1); CREATININE 0.7 mg/dL (0.6-1.0); POTASSIUM 4.5 mmol/L (3.5-5.1)
[2021-05-01 06:50] LABS: TOTAL BILIRUBIN 0.6 mg/dL (0.2-1.0); TOTAL PROTEIN 6.7 g/dL (6.4-8.2)
[2021-05-01] MEDS ORDERED: CEPHALEXIN500 MG PO (09:26)
[2021-05-01] MEDS ORDERED: TRAMADOL 50 MG50 MG PO (09:26)
[2021-05-01 13:56] VITALS: BP 118/80
[2021-05-01 15:10] VITALS: BP 114/73
[2021-05-01 15:23] VITALS: BP 114/73
[2021-05-01 16:10] VITALS: BP 140/63
[2021-05-01] MEDS ORDERED: PREDNISONE 10 M10 MG PO (16:45)
[2021-05-01] MEDS ORDERED: INCRUSE ELLI62.5 MCG IH (16:45)
[2021-05-01] MEDS ORDERED: COZAAR 25 MG TA25 M1 PO (16:47)
[2021-05-01] MEDS ORDERED: HYDROCHLOROTHIA25 M1 PO (16:48)
[2021-05-01] MEDS ORDERED: PERFOROMIS20 MCG/2 M INH (16:49)
[2021-05-01] MEDS ORDERED: PULMICORT0.5 MG/2 M INH (16:50)
[2021-05-01] MEDS ORDERED: FASENRA30 MG/1 ML SUBQ (16:51)
[2021-05-01] MEDS ORDERED: NEURONTIN 300M300 M2 PO (16:54)
[2021-05-01] MEDS ORDERED: RAYALDEE30 MCG PO (16:57)
[2021-05-01] MEDS ORDERED: LEXAPRO 10 MG T10 M1 PO (16:58)
[2021-05-01] MEDS ORDERED: TOPROL XL25 MG PO (16:59)
--- NOTE | 2021-05-01 18:02 | NUR ---
PT TO THE UNIT FROM THE ED. ORIENTED TO ROOM AND BEDSAPCE. MEDS PER SACHIN - ANIKET DIET AND FLUIDS. NO CO'S OF PAIN OR NAUSEA. MED REC COMPLETED DOCTOR MADE AWARE. UP TO THE BATHROOM WITH STBY ASSIST. ASSESSMENT CHARTED - NO CO'S AT THE PRESENT TIME - AT THE BEDSIDE. RESP NOTIFIED OF NEED FOR BIPAP WHEN PT SLEEPING TONIGHT. APPEARS TO BE COMFODRTABLE AT PRESENT.
[2021-05-01 19:50] VITALS: BP 123/71
[2021-05-02 06:25] VITALS: BP 131/57
[2021-05-02 07:45] VITALS: BP 108/70
--- NOTE | 2021-05-02 08:24 | NUR ---
ASSESSMENTS CARTED, MEDS CHARTED GIVEN. RESTING IN BED ON 2 LITERS DURING DAY, THEN BIPAP AT NIGHT DURING SLEEP. UP WITH STANDBY. ON MAINTENANCE FLUIDS.
[2021-05-02 14:30] VITALS: BP 121/68
--- NOTE | 2021-05-02 16:23 | NUR ---
ASSESSMENT CHARTED - MEDS PER MAY - ANIKET DIET AND FLUIDS. NO CO'S OF PAIN OR NAUSEA. UP TO THE BATHROOM WITH STBY ASSIST, PT SOB WITH MIN EXERTION. IV FLUIDS D/C'D, STARTED ON MUCINEX ORDERED. INTO VISIT. NO CO'S AT THE PRESENT TIME- APPEARS TO BE RESTING COMFORTABLY.
[2021-05-02 19:45] VITALS: BP 127/76
[2021-05-03 03:26] VITALS: BP 133/74
--- NOTE | 2021-05-03 07:55 | NUR ---
ASSUME CARE 2300. PT STABLE. A/O X 4. NO DISTRESS NOTED THROUGH THE SHIFT. DENIES ANY PAIN. GOOD ENDURANCE TO ACTIVITY. SOB WITH EXERTION. ASSESSMENT CHARTED. PROGRESSING MODERATELY TO POC. PLAN IS TO CONTINUE WITH BREATHING TXs/STEROIDS, AND TO CONTINUE TO MONITOR RESP FUNCTION FOR IMPROVEMENT. WILL MONITOR AND FOLLOW WITH POC
[2021-05-03 08:30] VITALS: BP 128/68
[2021-05-03] MEDS ORDERED: LEVOFLOXACIN500 MG PO (09:34)
[2021-05-03] MEDS ORDERED: MUCINEX600 MG PO (09:35)
[2021-05-03] MEDS ORDERED: PREDNISONE 20 M20 MG PO ×2 (09:35→09:47)
[2021-05-03 10:20] VITALS: BP 128/68
== END 2021-05-03 12:52 | disposition home or self-care (01) | DRG 189 ==
LOC: ER 06:03 → EROBS 12:01 → 2N 12:01
PROVIDERS: Emergency Medicine; ADMIT Hospitalist; ATTEND Hospitalist
PROC: 5A09357 Assistance with Respiratory Ventilation, Less than 24 Consecutive Hours, Continuous Positive Airway Pressure (ICD-10-PCS; principal; 2021-05-01)
PROC: 5A09357 Assistance with Respiratory Ventilation, Less than 24 Consecutive Hours, Continuous Positive Airway Pressure (ICD-10-PCS; 2021-05-02)
DX: J96.00 Acute respiratory failure, unspecified whether with hypoxia or hypercapnia (principal); J43.9 Emphysema, unspecified; F41.9 Anxiety disorder, unspecified; G47.33 Obstructive sleep apnea (adult) (pediatric); F17.210 Nicotine dependence, cigarettes, uncomplicated; K21.9 Gastro-esophageal reflux disease without esophagitis; J45.909 Unspecified asthma, uncomplicated; Z20.822 Contact with and (suspected) exposure to COVID-19; Z99.81 Dependence on supplemental oxygen; Z79.52 Long term (current) use of systemic steroids; Z79.899 Other long term (current) drug therapy; Z82.49 Family history of ischemic heart disease and other diseases of the circulatory system
CPT/HCPCS: 10081